=== PATIENT | female | born 1955 | race Caucasian/White ===

== ENCOUNTER → 2017-05-10 | Outpatient (CLI) | payer OTHER ==
--- NOTE | 2017-05-13 13:46 | MM ---
Reason for exam: screening (asymptomatic). Last mammogram was performed 2 years and 9 months ago. History: Patient is postmenopausal and had first child at age 37. Benign cyst aspiration of the right breast, 1992. Physical Findings: A clinical breast exam by your physician is recommended on an annual basis and results should be correlated with mammographic findings. MG 3D Screening Mammo W/Cad Bilateral CC and MLO view(s) were taken. Prior study comparison: July 28, 2014, mammogram, performed at [facility]. November 05, 2011, mammogram, performed at [facility]. The breast tissue is heterogeneously dense. This may lower the sensitivity of mammography. Focal asymmetry. There is a 17mm focal asymmetry in the retroareolar right breast likely corresponding to dilated ducts. Further evaluation warranted. ASSESSMENT: Incomplete: need additional imaging evaluation, BI-RAD 0 RECOMMENDATION: Special view mammogram and ultrasound of the right breast. [facility] will attempt to contact patient to return for supplemental views and ultrasound.
== END | disposition home or self-care (01) ==
LOC: RADMAMWWP 10:19
PROVIDERS: ATTEND Family Medicine
DX: Z12.31 Encounter for screening mammogram for malignant neoplasm of breast (principal)
CPT/HCPCS: 77063; G0202

== ENCOUNTER → 2017-05-20 | Outpatient (CLI) | payer OTHER ==
--- NOTE | 2017-05-20 16:14 | USB ---
EXAMINATION TYPE: US breast workup complete LT DATE OF EXAM: 05/20/2017 COMPARISON: Bilateral screening mammogram dated 05/10/2017 CLINICAL HISTORY: R92.8 Abn mammogram. The patient notes her right brown nipple discharge has been pr esent for many years and is unchanged. Whole left breast ultrasound was performed including the retroareolar region and axillary tail. Corre sponding to the focal asymmetry within the retroareolar left breast there are multiple prominent duct s with no intraductal filling defect noted. No suspicious sonographic abnormality is seen. No cystic or solid masses present. IMPRESSION: BI-RADS 2-benign findings. 1. Left breast retroareolar ductal ectasia corresponds to the mammographic abnormality, a benign find ing. 2. Clinical management is recommended for the prominent right nipple discharge the patient notes has been present for many years.
== END ==
LOC: RADMAMWWP 15:07
PROVIDERS: ATTEND Family Medicine
DX: R92.8 Other abnormal and inconclusive findings on diagnostic imaging of breast (principal)

== ENCOUNTER 2018-03-27 10:54 | Day surgery (SDC) | payer OTHER ==
[2018-03-26 08:59] VITALS: BMI 33.7
[~2018-03-27 10:54] MED LIST: DEXAMETHASONE SOD PHOSPHATE 10 MG/ML 1 ML VIAL IV ONE; LACTATED RINGERS 1,000 ML IV SCH; ONDANSETRON 4 MG/2 ML VIAL IVP ONE
[2018-03-27] MEDS ORDERED: LIDOCAINE 1% 20 ML VIAL (10MG/ML) FOR IV START INTRADERMA ONE (11:40)
[2018-03-27] MEDS ORDERED: FAMOTIDINE 20 MG/2 ML VIAL IV ONE (11:42)
[2018-03-27] MEDS ORDERED: BUPIVACAINE (PF) 0.5% 30 ML VIAL SQ ONE ×3 (12:16→12:40)
[2018-03-27] MEDS ORDERED: LIDOCAINE 1%-EPI 1:100,000 20 ML VIAL SQ ONE ×3 (12:16→12:40)
[2018-03-27] MEDS ORDERED: fentaNYL (PF) 50 MCG/ML 2 ML AMP ONE (12:17)
[2018-03-27] MEDS ORDERED: LIDOCAINE 1% INJ 10MG/ML (20 ML MDV) ONE (12:17)
[2018-03-27] MEDS ORDERED: PROPOFOL 10 MG/ML 20 ML VIAL IV ONE (12:17)
[2018-03-27] MEDS ORDERED: ePHEDrine SULFATE/0.9% NACL/PF 50 MG/5 ML SYRINGE IV ONE (12:17)
[2018-03-27] MEDS ORDERED: SUCCINYLCHOLINE CHLORIDE 100 MG/5 ML SYR IV ONE (12:17)
[2018-03-27] MEDS ORDERED: MIDAZOLAM 2 MG/2 ML VIAL ONE (12:17)
[2018-03-27] MEDS: HYDROmorphone 0.5 MG/0.5 ML SYRINGE IVP PRN ×2 (13:45→14:12)
--- NOTE | 2018-03-27 13:54 | P.OP ---
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 Maxillary antrostomy and repair of this right oroantral fistula was recommended. Operative Findings: Patient had a large amount of infection and food debris in the right maxillary sinus. Patient had a persistent right oral antral fistula. Description of Procedure: This patient was taken to the operative room and placed in the supine position. A general inhalation anesthetic was administered to the patient by mask and subsequently intubated with a cuffed endotracheal tube by the department of anesthesia with a functioning IV line in place. Patient was monitored throughout the entire case by the department of anesthesia. The right lateral nasal wall middle turbinate and uncinate process was injected with lidocaine 1% with epinephrine 1 100,000 in approximately 10 minutes were allowed wait for full vasoconstrictive effects to take place. With use of a Norman a nasal antral window was performed underneath the right inferior turbinate. We opened up the maxillary sinus under the right inferior turbinate and debris and diseased tissue was removed. We then took down the uncinate process with a pediatric backbiter and open up the maxillary sinus on the right side. Diseased tissue was again removed and the patient tolerated this well. All maxillary sinus disease was removed we did do that procedure with a 0 Marr jarret scopes throughout the entire procedure the nasal procedure was done with a Marr jarret scope on a video screen. After the right maxillary sinus was opened and diseased tissue and food debris removed we paid attention to the mouth were in the right upper or antral fistula was identified. We injected that area with lidocaine 1% with epinephrine 1 100,000. An incision was made surrounding the oral antral fistula and the fistula and was imbricated inward. After the fistula was imbricated we raised a buccal flap laterally and we undermined that area to release the attachments. We rotated the buccal flap into the oral antral fistula and close this with 2-0 silk. Excellent results were obtained. The patient tolerated this well. Follow-up will be in the office in 1 week.
[2018-03-27 14:00] VITALS: TEMP 97.6
[2018-03-27 14:27] VITALS: RESP 18
[2018-03-27 14:41] VITALS: BP 138/68; PULSE 68
[2018-03-28] MEDS ORDERED: MELOXICAM 7.5 MG TAB PO ONE (06:00)
[2018-03-28] MEDS ORDERED: OXYMETAZOLINE 0.05% NASL SPRAY 1 SPRAY BOTTLE NASAL ONE (06:00)
[2018-03-28] MEDS ORDERED: ONDANSETRON 4 MG/2 ML VIAL IVP ONE (06:00)
[2018-03-28] MEDS ORDERED: CLINDAMYCIN 600 MG in DEXTROSE 5% IN WATER 50 ML IVPB ONE ×2 (06:00)
[2018-03-28] MEDS ORDERED: DEXAMETHASONE SOD PHOSPHATE 4 MG/ML 1 ML VIAL IV ONE (06:00)
== END 2018-03-27 14:59 | disposition home or self-care (01) ==
LOC: OR 10:54
PROVIDERS: ATTEND Otolaryngology
DX: J32.0 Chronic maxillary sinusitis (principal); E78.00 Pure hypercholesterolemia, unspecified; I10 Essential (primary) hypertension; F32.9 Major depressive disorder, single episode, unspecified; Z79.899 Other long term (current) drug therapy; Z88.0 Allergy status to penicillin; Z87.891 Personal history of nicotine dependence
CPT/HCPCS: 88305; 31267; 30580; J2250; J1100; J2405; J2001; J3010; J0330; J2704; J1170

== ENCOUNTER → 2018-08-07 | Outpatient (CLI) | payer OTHER ==
--- NOTE | 2018-08-08 15:06 | MM ---
Reason for exam: screening (asymptomatic). Last mammogram was performed 1 year and 3 months ago. History: Patient is postmenopausal and had first child at age 37. Benign cyst aspiration of the right breast, 1992. Physical Findings: A clinical breast exam by your physician is recommended on an annual basis and results should be correlated with mammographic findings. MG Screening Mammo w CAD Bilateral CC and MLO view(s) were taken. Prior study comparison: May 10, 2017, bilateral MG 3d screening mammo w/cad. July 28, 2014, mammogram, performed at [facility]. The breast tissue is heterogeneously dense. This may lower the sensitivity of mammography. No significant changes when compared with prior studies. ASSESSMENT: Benign, BI-RAD 2 RECOMMENDATION: Routine screening mammogram of both breasts in 1 year.
== END ==
LOC: RADMAMWWP 09:14
PROVIDERS: ATTEND Family Medicine
DX: Z12.31 Encounter for screening mammogram for malignant neoplasm of breast (principal)
CPT/HCPCS: 77067

== ENCOUNTER → 2019-09-15 | Outpatient (CLI) | payer OTHER ==
--- NOTE | 2019-09-15 09:59 | XR ---
EXAM TYPE: LUMBAR SPINE X RAY SERIES COMPARISON: NONE HISTORY: Pain TECHNIQUE: 3 views are submitted. FINDINGS: Alignment is anatomic. The pedicles are intact. The transverse processes are intact. There is a gr ines 1 anterolisthesis of L4 on 5. There is moderate severe degenerative disc disease and facet arthro neda L4-5 and L5-S1. Mild degenerative disc disease L-1-L2. IMPRESSION: 1. Multilevel degenerative disc disease and facet arthropathy most pronounced at L4-5 and L5-S1. Ther e is a grade 1 anterolisthesis of L4 on L5. Correlate with MRI as foraminal encroachment suspected at both levels.
--- NOTE | 2019-09-15 10:00 | XR ---
EXAMINATION TYPE: XR Hip Bilateral Complete DATE OF EXAM: 09/15/2019 COMPARISON: NONE HISTORY: Pain TECHNIQUE: 2 views submitted of each hip FINDINGS: There is no evidence of erosive change or acute fracture. There is mild concentric narrowing of the hip joint right. Soft tissue ossifications calcifications a re seen. Mild hypertrophic change of the acetabulum. There is severe narrowing of the superior compartment of the left hip joint. No erosive changes. IMPRESSION: 1. Severe osteoarthritis left hip. 2. Mild osteoarthritis right hip.
== END | disposition home or self-care (01) ==
LOC: RADXRMAIN 09:32
PROVIDERS: ATTEND Family Medicine
DX: M51.36 Other intervertebral disc degeneration, lumbar region (principal); M43.16 Spondylolisthesis, lumbar region; M51.37 Other intervertebral disc degeneration, lumbosacral region; M46.96 Unspecified inflammatory spondylopathy, lumbar region; M46.97 Unspecified inflammatory spondylopathy, lumbosacral region; M16.0 Bilateral primary osteoarthritis of hip
CPT/HCPCS: 72100; 73521

== ENCOUNTER → 2019-11-13 | Outpatient (CLI) | payer OTHER ==
--- NOTE | 2019-11-17 10:19 | MM ---
Reason for exam: screening (asymptomatic). Last mammogram was performed 1 year and 3 months ago. History: Patient is postmenopausal and had first child at age 37. Benign cyst aspiration of the right breast, 1992. Physical Findings: A clinical breast exam by your physician is recommended on an annual basis and results should be correlated with mammographic findings. MG Screening Mammo w CAD Bilateral CC and MLO view(s) were taken. Prior study comparison: August 07, 2018, bilateral MG screening mammo w CAD. May 10, 2017, bilateral MG 3d screening mammo w/cad. The breast tissue is heterogeneously dense. This may lower the sensitivity of mammography. Focal asymmetry right outer CC view. No significant changes when compared with prior studies. ASSESSMENT: Benign, BI-RAD 2 RECOMMENDATION: Routine screening mammogram of both breasts in 1 year.
== END | disposition home or self-care (01) ==
LOC: RADMAMWWP 13:09
PROVIDERS: ATTEND Family Medicine
DX: Z12.31 Encounter for screening mammogram for malignant neoplasm of breast (principal)
CPT/HCPCS: 77067

== ENCOUNTER → 2019-12-04 | Outpatient (CLI) | payer OTHER | END | disposition home or self-care (01) | LOC: LABPAT 12:08 | PROVIDERS: ATTEND Orthopaedic Surgery | DX: Z01.812 Encounter for preprocedural laboratory examination (principal); M16.12 Unilateral primary osteoarthritis, left hip | CPT/HCPCS: 87070 ==

== ENCOUNTER 2019-12-14 11:27 | Observation (INO) | payer OTHER ==
[2019-12-10 11:24] VITALS: BMI 32.1
--- NOTE | 2019-12-13 11:30 | HP ---
HISTORY AND PHYSICAL REASON FOR ADMISSION: Surgery is scheduled for 12/14/2019. HISTORY OF PRESENT ILLNESS: Caty Ruvalcaba is a 63-year-old patient seen with symptomatic left hip osteoarthritis. After having options regarding treatment discussed with her, she elected to proceed with left total hip arthroplasty. Consent regarding the procedure was obtained. Medical clearance was provided by Dr. Hawa Yen's office. PAST MEDICAL HISTORY: Hyperlipidemia, hypertension, depression. PAST SURGICAL HISTORY: section, oral surgery. MEDICATIONS: Atorvastatin, Effexor, lisinopril. ALLERGIES: AMOXICILLIN. SOCIAL HISTORY: She denies current tobacco use. PHYSICAL EXAMINATION: Evaluation of the left hip: She has some diffuse tenderness along the hip girdle. Limited range of motion with severe pain. Positive hip impingement sign. Straight leg raise is negative. Her distal neurovascular exam is intact. RADIOGRAPHS: Radiographs of the left hip reveal severe osteoarthritic changes. IMPRESSION: 1. Left hip osteoarthritis. 2. Hypertension. 3. Hyperlipidemia. PLAN: Direct anterior left total hip arthroplasty. Surgery scheduled for 12/14/2019. MMODL / IJN: [id number] /
[~2019-12-14 11:27] MED LIST changes: +ACETAMINOPHEN TAB 500 MG TAB PO ONE; -LACTATED RINGERS 1,000 ML IV SCH; +MELOXICAM 7.5 MG TAB PO ONE; +MIDAZOLAM 2 MG/2 ML VIAL IV PRN; +ROPIVACAINE 246.25 MG, EPINEPHrine 0.5 MG, KETOROLAC 30 MG, cloNIDine HCL/PF 80 MCG, WA... MISCELLANE ONE; +SCOPOLAMINE 1.5MG/72HR PATCH TRANSDERM ONE; +TRANEXAMIC ACID 1,000 MG in SODIUM CHLORIDE 0.9% 100 ML IVPB ONE
[2019-12-14 12:06] LABS: Glucose,Whole Blood 94 mg/dL (75-99)
[2019-12-14] MEDS: LACTATED RINGERS 1,000 ML IV SCH ×3 (12:14→22:05)
[2019-12-14] MEDS ORDERED: LIDOCAINE 1% (10MG/ML) FOR IV START INTRADERMA ONE (12:16)
[2019-12-14] MEDS ORDERED: ePHEDrine SULFATE/0.9% NACL/PF 50 MG/5 ML SYRINGE IV ONE (12:46)
[2019-12-14] MEDS ORDERED: TRANEXAMIC ACID 1,000 MG/10 ML VIAL ONE (12:46)
[2019-12-14] MEDS ORDERED: MIDAZOLAM 2 MG/2 ML VIAL ONE (12:46)
[2019-12-14] MEDS ORDERED: fentaNYL (PF) 50 MCG/ML 2 ML AMP ONE (12:46)
[2019-12-14] MEDS ORDERED: SODIUM CHLORIDE 0.9% 100 ML BAG ONE (12:46)
[2019-12-14] MEDS ORDERED: LIDOCAINE 1% INJ 10MG/ML (20 ML MDV) ONE (12:46)
[2019-12-14] MEDS ORDERED: PROPOFOL 10 MG/ML 20 ML VIAL IV ONE (12:46)
[2019-12-14] MEDS ORDERED: LACTATED RINGERS 1,000 ML IV ONE ×2 (14:12→17:45)
[2019-12-14] MEDS ORDERED: ONDANSETRON 4 MG/2 ML VIAL IVP PRN (14:58)
[2019-12-14] MEDS ORDERED: NALOXONE 0.4 MG/ML 1 ML VIAL IV PRN (14:58)
[2019-12-14] MEDS ORDERED: HYDROmorphone 1 MG/ML 1 ML SYRINGE IVP PRN (14:58)
[2019-12-14] MEDS ORDERED: HYDROcodone/APAP 7.5-325MG 1 EACH TAB PO PRN (14:58)
[2019-12-14] MEDS ORDERED: HYDROmorphone 0.5 MG/0.5 ML SYRINGE IVP PRN (14:58)
--- NOTE | 2019-12-14 14:58 | P.OP ---
Date of Procedure: 12/14/19 Preoperative Diagnosis: Left hip osteoarthritis Postoperative Diagnosis: Left hip osteoarthritis Procedure(s) Performed: Direct anterior left total hip arthroplasty Implants: 1. Depuy Corail KA size 10 standard press-fit femoral stem 2. Depuy pinnacle 52 mm press-fit acetabular shell 3. Depuy pinnacle neutral polyethylene acetabular liner 36 mm ID 52 mm OD 4. Biolox delta ceramic femoral head +5 36 mm Anesthesia: local, spinal Surgeon: Matias Owens Electrical Calibrator #1: Ton Alberto Estimated Blood Loss (ml): 80 Pathology: other (Femoral head) Condition: stable Disposition: PACU Indications for Procedure: 63-year-old patient seen with symptomatic left hip osteoarthritis. After treatment options were discussed, she elected to proceed with total hip arthroplasty. Operative Findings: See description of procedure Description of Procedure: The patient was taken to the operative suite. Patient underwent a spinal anesthetic by the department of anesthesia. Patient was then transferred to the [place] table. Patient was given preoperative IV antibiotics and TXA. Both lower extremities were placed in standard leg spars. The hip was then prepped and draped in the normal sterile orthopedic fashion. A standard anterior incision was made beginning 3 cm lateral and 1 cm distal to the ASIS extending 10 cm. Dissection was then carried down through the subcutaneous soft tissues down to the fascia overlying the tensor fascia archie. An incision was now made through the fascia. Careful dissection was taken down exposing the tensor fascia archie muscle. A Cobra retractor was now placed along the medial femoral neck and a second one along the lateral femoral neck. The venous circumflex vessels were now identified, cauterized and clipped. We identified the anterior hip capsule. An incision was made through the hip capsule along the lateral border. I performed a partial anterior capsulectomy. Retractors were now placed around the femoral neck itself. A femoral neck cut was now made with a sagittal saw. It was completed with an osteotome at the lateral neck area. The femoral head was now removed without difficulty. The extremity was now rotated to 45 of external rotation. It was locked in position. Residual labrum was now debrided out. Serial reaming was performed of the acetabulum while Tonny COE assisted holding an anterior retractor for exposure. Once we reached the appropriate size and a trial was position and fit nicely. The appropriate size was now chosen opened and made available. It was introduced into the acetabulum without difficulty. The C-arm/fluoroscopy was now brought into the operative field. We made sure we had a true AP pelvic view. We now under direct C- arm/fluoroscopy introduced into the acetabular component with appropriate version and inclination. I held the cup in appropriate position well Tonny COE used a mallet to seat the acetabular component. I noted the component now to be well seated and stable. Acetabular cup introduce her was removed. The C-arm was pulled back. An appropriate liner was introduced and clicked into position. It was felt to be stable. At this point retractors were removed. The extremity was now placed into 125 external rotation with no traction. The leg was now dropped to the ground and adducted. Appropriate retractors were now positioned along the proximal femur. We also placed our femoral look into position. Additional capsular releasing was performed to gain access to the proximal femur. We now used a box osteotome. A canal finder was now utilized. Serial broaching was now performed with the assistance of Tonny COE tapping the broaches down with a mallet while held the broach in appropriate rotation and position. This was done until we reached the appropriate size with good overall rotational stability. Appropriate calcar planing was performed. A trial head/neck was placed into position. The hip was now reduced. The C- arm/fluoroscopy was brought back into the operative field. An AP pelvis was obtained to ascertain leg length. The trial components were visualized and noted to be adequately positioned. The C-arm/fluoroscopy was pulled back. Retractors were repositioned and the hip was dislocated. The leg was again taken down to the ground and adducted. Appropriate retractors were repositioned as well as the femoral hook. All trial components were removed. The femoral implant was opened along with the femoral head. The femoral implant was introduced on the appropriate handle into our pre-broached area. I held the component position well Tonny COE used a mallet to seat the femoral component. The femoral component was now noted to be well seated and stable.. The femoral head was introduced with good positioning and fixation noted. Retractors were now removed. The hip was now reduced. There appeared be good positioning of the hip confirmed on intraoperative fluoroscopy. Spot films were obtained to document this. A second gram of TXA was given. The deep and superficial soft tissues were infiltrated with local analgesic. Bipolar cautery had been utilized intermittently through the procedure for hemostasis. The wound was irrigated copiously with pulse lavage mechanical irrigation. The fascia was repaired with Vicryl suture. The subcutaneous soft tissues were repaired in layers with Vicryl suture. The skin was approximated with pernio/Dermabond. Sterile dressings were applied. Patient was then awakened, transferred to a bed and taken to recovery in stable condition. Tonny COE assisted with the complex procedure.
--- NOTE | 2019-12-14 15:22 | XR ---
EXAMINATION TYPE: XR Hip Limited LT, FL guidance operating room DATE OF EXAM: 12/14/2019 CLINICAL HISTORY: Fluoroscopic documentation during left hip arthroplasty TECHNIQUE: Fluoroscopy. COMPARISON: None. FINDINGS: Fluoroscopic guidance was provided during procedure performed by Dr. Owens. A total o f 21 seconds of fluoroscopic time was utilized during the procedure and 2 spot images was acquired du ring left hip arthroplasty. IMPRESSION: As Above.
[2019-12-14] MEDS: HYDROmorphone 0.5 MG/0.5 ML SYRINGE IVP PRN ×4 (17:20→22:00)
[2019-12-14 17:32] VITALS: RESP 16
[2019-12-14] MEDS ORDERED: SENNOSIDES-DOCUSATE SODIUM 1 EACH TAB PO SCH (21:00)
[2019-12-15] MEDS: HYDROcodone/APAP 7.5-325MG 1 EACH TAB PO PRN ×3 (00:09→13:50)
[2019-12-15] MEDS: HYDROmorphone 0.5 MG/0.5 ML SYRINGE IVP PRN (03:51)
[2019-12-15] MEDS: LACTATED RINGERS 1,000 ML IV SCH (05:29)
[2019-12-15 07:53] VITALS: BP 128/65; PULSE 61; TEMP 98.3
[2019-12-15 08:38] LABS: Basophils % (A) 0 %; Eosinophils # (A) 0.1 k/uL (0-0.7); Eosinophils % (A) 1 %; HCT 37.6 % (34.0-46.0); HGB 12.3 gm/dL (11.4-16.0); Lymphocytes # (A) 3.1 k/uL (1.0-4.8); Lymphocytes % (A) 26 %; MCHC 32.6 g/dL (31.0-37.0); MCV 95.1 fL (80.0-100.0); Mean Platelet Volume 8.2; Monocytes # (A) 0.7 k/uL (0-1.0); Monocytes % (A) 6 %; Neutrophils # (A) 7.7 k/uL (1.3-7.7); Neutrophils % (A) 65 %; Platelet Count 215 k/uL (150-450); RBC 3.95 m/uL (3.80-5.40); RDW 13.5 % (11.5-15.5); WBC 11.8 k/uL (3.8-10.6)
[2019-12-15] MEDS ORDERED: ENOXAPARIN 40 MG/0.4 ML SYRINGE SQ SCH (09:00)
[2019-12-15] MEDS ORDERED: FAMOTIDINE 20 MG TAB PO SCH (09:00)
[2019-12-15] MEDS ORDERED: MELOXICAM 7.5 MG TAB PO SCH (09:00)
--- NOTE | 2019-12-15 11:19 | P.PN ---
Subjective Progress Note Date: 12/15/19 Principal diagnosis: status post direct anterior left total hip arthroplasty Patient evaluated today at bedside today, she is resting comfortably. She's done very well with physical therapy. Her pain is well-controlled. She denies chest pain, shortness of breath, fever or chills. Objective - Vital Signs Vital signs: Vital Signs Temp 98.3 F 12/15/19 07:38 Pulse 61 12/15/19 07:38 Resp 16 12/15/19 07:38 BP 128/65 12/15/19 07:38 Pulse Ox 94 L 12/15/19 07:38 Intake & Output 12/14/19 12/15/19 12/15/19 18:59 06:59 18:59 Intake Total 2000 200 Output Total 80 1000 Balance 1920 -1000 200 Weight 83.8 kg 83.8 kg Intake: IV 2000 Oral 200 Output: Urine 1000 Estimated Blood Loss 80 Other: Voiding Method Toilet # Voids 1 1 - Exam Left lower extremity: Incision is clean, dry, and intact. The opti foam dressing is in good condition. There is minimal soft tissue swelling and ecchymosis surrounding the medial and lateral aspects of the incision. Calf is soft, no tenderness with palpation. Plantar flexion, dorsiflexion, EHL, FHL are intact. Sensory exam to light touch throughout the extremity is intact, dorsal pedis pulses 2+. - Labs CBC & Chem 7: 12/15/19 06:53 Labs: Abnormal Lab Results - Last 24 Hours (Table) 12/15/19 Range/Units 06:53 WBC 11.8 H (3.8-10.6) k/uL Assessment and Plan Plan: Assessment: Postoperative day 1 status post right anterior left total hip arthroplasty Plan: Pain control, discharged home on oral medication GI and DVT prophylaxis, aspirin 81 mg twice a day Wound care instructions were discussed Home physical therapy and nursing Medical recommendations [facility] with [facility] 2 weeks, stable for discharge home today Time with Patient: Less than 30
--- NOTE | 2019-12-15 11:21 | P.DS ---
Providers Date of admission: 12/14/2019 Expected date of discharge: 12/15/19 Attending physician: Matias Owens Consults: 12/14/19 14:58 Consult Physician Routine Consulting Provider: Brian Joseph Reason/Comments: Medical management Do you want consulting provider notified?: Yes Primary care physician: Hawa Yen Hospital Course: Date of admission: 12/14/2019 Date of discharge: 12/15/2019 Admission diagnosis: Status post direct anterior left total hip arthroplasty Discharge diagnosis: Same Attending physician: Dr. Owens Surgical procedures: Direct anterior left total hip arthroplasty Brief history: Patient is a 63-year-old female with a history of aggressive primary left hip osteoarthritis. At this point patient has failed conservative treatment measures and has opted to proceed with a elective direct anterior left total hip arthroplasty. Hospital course: Details of patient's surgery can be found in operative report. Patient tolerated the procedure well and was subsequently transported to orthopedic floor. Patient's orthopeidc and medical care was provided daily. Patient had daily laboratory tests performed for evaluation of overall blood counts. Patient had daily physical therapy to include strengthening range of motion as well as education with walker ambulation. Patient was treated with Lovenox for their postoperative DVT prophylaxis during their inpatient stay. Patient was noted to have a relatively uneventful postoperative course. Patient reported satisfactory pain control with oral pain medications by postoperative day 0. Patient showed satisfactory progress with physical therapy. Patient moved steadily through the program and had no difficulty meeting the goals by postoperative day 1. Given patient's otherwise satisfactory course and having met physical therapy goals, plan is to discharge patient home on postoperative day 1. Discharge condition/disposition: Patient will be discharged home in stable c ondition. Discharge medications: Instructions are given on resumption of patient's normal daily medications per primary care recommendation, in addition patient will be prescribed [place] 7.5 mg/325 mg, aspirin 81 mg. Discharge instructions: 1. Wound care and infection precautions, keep incision dry and covered while showering, no lotions, creams, moisturizers. No soaking, tubs, pools, hottubs. D o not scrub over the incision. 2. Weight-bear as tolerated with walker / cane until follow-up. 3. Ice and elevate when necessary. Do not exceed 20 minutes per hour with ice pack. 4. Utilize compression sleeve until seen at first follow up appointment. 5. Visiting nursing care. 6. Home physical therapy. 7. Pain meds and anticoagulants per prescription. 8. Pain medication has potential to cause constipation. Increase oral fluid and fiber intake. Contact primary care provider if you have not had a bowel movement within 48 hours after discharge 9. No anti-inflammatory medication until discussed at first post operative visit, this including Motrin, Aleve, Mobic, Diclofenac. 10. Follow up in office at 2 weeks postop with Tonny Alberto PA-C 11. Follow up with your primary care doctor 7-10 days after discharge. 12. Contact [facility] with any questions, . Procedures: direct anterior left total hip arthroplasty Patient Condition at Discharge: Good Plan - Discharge Summary Discharge Rx Participant: Yes New Discharge Prescriptions: New Aspirin [Adult Low Dose Aspirin EC] 81 mg PO BID #60 tablet. HYDROcodone/APAP 7.5-325MG [[place] 7.5] 1 - 2 each PO Q6HR PRN #56 tab PRN Reason: Pain No Action Venlafaxine HCl ER [Effexor Xr] 75 mg PO QAM Methylphenidate HCl [Concerta] 36 mg PO DAILY Lisinopril [Zestril] 20 mg PO QAM Atorvastatin [Lipitor] 60 mg PO DAILY Multivit with Calcium,Iron,Min [Women's Multivitamin] 1 each PO DAILY B,C/Folic/Zinc/Copper Ox/Vit E [Stress B-Complex Tablet] 1 each PO DAILY Baclofen [Lioresal] 10 mg PO BID PRN PRN Reason: Pain Acetaminophen [Tylenol] 500 - 1,000 mg PO Q4-6H PRN PRN Reason: Pain traMADol HCL [Ultram] 50 mg PO BID PRN PRN Reason: Pain Calcium Citrate 250 mg PO DAILY Cyclobenzaprine HCl 10 mg PO HS PRN PRN Reason: Pain Biotin 5,000 mcg PO DAILY Discharge Medication List Atorvastatin [Lipitor] 60 mg PO DAILY 03/26/18 [History] B,C/Folic/Zinc/Copper Ox/Vit E [Stress B-Complex Tablet] 1 each PO DAILY 03/26/18 [History] Lisinopril [Zestril] 20 mg PO QAM 03/26/18 [History] Methylphenidate HCl [Concerta] 36 mg PO DAILY 03/26/18 [History] Multivit with Calcium,Iron,Min [Women's Multivitamin] 1 each PO DAILY 03/26/18 [History] Venlafaxine HCl ER [Effexor Xr] 75 mg PO QAM 03/26/18 [History] Acetaminophen [Tylenol] 500 - 1,000 mg PO Q4-6H PRN 12/10/19 [History] Baclofen [Lioresal] 10 mg PO BID PRN 12/10/19 [History] Biotin 5,000 mcg PO DAILY 12/10/19 [History] Calcium Citrate 250 mg PO DAILY 12/10/19 [History] Cyclobenzaprine HCl 10 mg PO HS PRN 12/10/19 [History] traMADol HCL [Ultram] 50 mg PO BID PRN 12/10/19 [History] Aspirin [Adult Low Dose Aspirin EC] 81 mg PO BID #60 tablet. 12/15/19 [Rx] HYDROcodone/APAP 7.5-325MG [[place] 7.5] 1 - 2 each PO Q6HR PRN #56 tab 12/15/19 [Rx] Follow up Appointment(s)/Referral(s): Ton Alberto PAC [PHYSICIAN INSULATION NOZZLEMAN] - 12/30/19 3:10 pm Hawa Yen DO [Primary Care Provider] - 1 Week Activity/Diet/Wound Care/Special Instructions: Orthopedic Discharge Instructions: 1. Wound care and infection precautions, keep incision dry and covered while showering, no lotions, creams, moisturizers. No soaking, pools, hot tubs. Do not scrub over incision. 2. Weight-bear as tolerated with walker / cane until follow-up. 3. Ice and elevate when necessary. Do not exceed 20 minutes per hour with ice pack. 4. Utilize compression sleeve until seen at first follow up appointment. 5. Pain meds and anticoagulants per prescription. 6. Pain medication has potential to cause constipation. Increase oral fluid and fiber intake. Contact primary care provider if you have not had a bowel movement within 48 hours after discharge. 7. No anti-inflammatory medication until discussed at first post operative visit, this including Motrin, Aleve, Mobic, Diclofenac. 8. Follow up in office at 2 weeks postop with Tonny Alberto PA-C 9. Follow up with your primary care doctor 7-10 days after discharge. 10. Contact [facility] with any questions, . Discharge Disposition: HOME WITH HOME HEALTH SERVICES
== END 2019-12-15 14:14 | disposition home health service (06) ==
LOC: OR 11:27 → 4SSUR 19:09 → OBSVTOIN 12-15 04:21 → OR 12-15 04:21 → INTOOBSV 12-15 04:21 → 4SSUR 12-15 04:21 → UNDODISOB 12-15 14:11 → OBSVTOIN 12-18 23:21 → INTOOBSV 12-18 23:21 → UNDODISIN 12-18 23:22
PROVIDERS: ADMIT Orthopaedic Surgery; ATTEND Orthopaedic Surgery
PROC: 0SRB04A Replacement of Left Hip Joint with Ceramic on Polyethylene Synthetic Substitute, Uncemented, Open Approach (ICD-10-PCS; principal; 2019-12-14 12:35)
DX: M16.12 Unilateral primary osteoarthritis, left hip (principal); E78.5 Hyperlipidemia, unspecified; I10 Essential (primary) hypertension; F32.9 Major depressive disorder, single episode, unspecified; Z79.899 Other long term (current) drug therapy; Z87.891 Personal history of nicotine dependence; Z98.891 History of uterine scar from previous surgery; Z98.890 Other specified postprocedural states; Z88.0 Allergy status to penicillin
CPT/HCPCS: 97161; 86900; 86901; 85025; 86850; 88300; 73501; 36415; 27130; G0378; C1776; J2250; J0171; J1100; J0690 ×2; J2405; J2001; J1650; J3010; J1885; J2795; J2704; J0735; J1170 ×2

== ENCOUNTER → 2020-10-13 | Outpatient (CLI) | payer OTHER ==
[2020-10-13 11:17] LABS: Basophils # (A) 0.1 k/uL (0-0.2); Basophils % (A) 1 %; Eosinophils # (A) 0.1 k/uL (0-0.7); Eosinophils % (A) 1 %; HCT 46.3 % (34.0-46.0); Lymphocytes # (A) 2.8 k/uL (1.0-4.8); Lymphocytes % (A) 36 %; MCH 31.5 pg (25.0-35.0); MCHC 32.4 g/dL (31.0-37.0); MCV 97.3 fL (80.0-100.0); Mean Platelet Volume 7.3; Monocytes # (A) 0.5 k/uL (0-1.0); Monocytes % (A) 6 %; Neutrophils % (A) 52 %; Platelet Count 271 k/uL (150-450); RBC 4.75 m/uL (3.80-5.40); RDW 13.7 % (11.5-15.5); WBC 7.7 k/uL (3.8-10.6)
[2020-10-13 11:30] LABS: Potassium 4.4 mmol/L (3.5-5.1)
[2020-10-13 12:05] LABS: INR 0.9 (<1.2); Prothrombin Time 10.2 sec (9.0-12.0)
== END | disposition home or self-care (01) ==
LOC: LABPAT 10:05
PROVIDERS: ATTEND Orthopaedic Surgery
DX: Z01.812 Encounter for preprocedural laboratory examination (principal); M16.11 Unilateral primary osteoarthritis, right hip
CPT/HCPCS: 80051; 85025; 85610; 87070; 93005

== ENCOUNTER 2020-10-24 06:27 | Day surgery (SDC) | payer OTHER ==
[2020-10-14 16:04] VITALS: BMI 35.9
--- NOTE | 2020-10-23 12:18 | HP ---
HISTORY AND PHYSICAL REASON FOR ADMISSION: Surgery 10/24/2020 HISTORY OF PRESENT ILLNESS: Caty Troncoso is a 64-year-old patient seen with symptomatic right hip osteoarthritis. After options for treatment were discussed with her, she elected to proceed with right direct anterior right total hip arthroplasty. Consent was obtained. Previous medical clearance was provided by Dr. Hawa Yen. PAST MEDICAL HISTORY: Hyperlipidemia, hypertension. PAST SURGICAL HISTORY: Left total hip arthroplasty, section, oral surgery. DAILY MEDICATIONS: Atorvastatin, Effexor, lisinopril. ALLERGIES: AMOXICILLIN. SOCIAL HISTORY: She denies current tobacco use. PHYSICAL EXAMINATION: Evaluation of the right hip: There is very limited range of motion with severe pain, diffuse tenderness about the hip girdle. Straight leg raise negative. Positive hip impingement sign. Distal neurovascular exam is intact. RADIOGRAPHS: Radiographs of the right hip reveal severe osteoarthritic changes. IMPRESSION: 1. Right hip osteoarthritis. 2. Hypertension. 3. Hyperlipidemia. PLAN: Direct anterior right total hip arthroplasty. Surgery 10/24/2020. MMODL / IJN: [id number] /
[~2020-10-24 06:27] MED LIST changes: -ACETAMINOPHEN TAB 500 MG TAB PO ONE; +ACETAMINOPHEN TAB 500 MG TAB PO PRN; -DEXAMETHASONE SOD PHOSPHATE 10 MG/ML 1 ML VIAL IV ONE; +LACTATED RINGERS 1,000 ML IV SCH; +LIDOCAINE 1% (10MG/ML) FOR IV START INTRADERMA PRN; -MELOXICAM 7.5 MG TAB PO ONE; +MELOXICAM 7.5 MG TAB PO PRN; -MIDAZOLAM 2 MG/2 ML VIAL IV PRN; -ROPIVACAINE 246.25 MG, EPINEPHrine 0.5 MG, KETOROLAC 30 MG, cloNIDine HCL/PF 80 MCG, WA... MISCELLANE ONE; +ROPIVACAINE/EPI/CLONIDINE/KET 50 ML SYRINGE MISCELLANE PRN; -SCOPOLAMINE 1.5MG/72HR PATCH TRANSDERM ONE; -TRANEXAMIC ACID 1,000 MG in SODIUM CHLORIDE 0.9% 100 ML IVPB ONE; +TRANEXAMIC ACID 1,000 MG in SODIUM CHLORIDE 0.9% 100 ML IVPB PRN
[2020-10-24] MEDS ORDERED: HYDROmorphone 0.5 MG/0.5 ML SYRINGE IVP PRN ×2 (07:00→09:45)
[2020-10-24] MEDS ORDERED: DEXAMETHASONE SOD PHOSPHATE 4 MG/ML 1 ML VIAL IVP ONE (07:10)
[2020-10-24] MEDS ORDERED: HYDROmorphone (PF) 1 MG/ML ONE (07:23)
[2020-10-24] MEDS ORDERED: SUCCINYLCHOLINE CHLORIDE 100 MG/5 ML SYR IV ONE (07:23)
[2020-10-24] MEDS ORDERED: MIDAZOLAM 2 MG/2 ML VIAL ONE (07:23)
[2020-10-24] MEDS ORDERED: ROCURONIUM 10 MG/ML (10 ML VIAL) IV ONE (07:23)
[2020-10-24] MEDS ORDERED: GLYCOPYRROLATE 0.2 MG/ML 2 ML VIAL ONE (07:23)
[2020-10-24] MEDS ORDERED: NEOSTIGMINE 1 MG/ML 10 ML VIAL ONE (07:23)
[2020-10-24] MEDS ORDERED: PROPOFOL 10 MG/ML 20 ML VIAL IV ONE (07:23)
[2020-10-24] MEDS ORDERED: SODIUM CHLORIDE 0.9% 100 ML BAG ONE (07:23)
[2020-10-24] MEDS ORDERED: LIDOCAINE 1% INJ 10MG/ML (20 ML MDV) ONE (07:23)
[2020-10-24] MEDS ORDERED: ePHEDrine SULFATE/0.9% NACL/PF 50 MG/5 ML SYRINGE IV ONE (07:23)
[2020-10-24] MEDS ORDERED: fentaNYL (PF) 50 MCG/ML 2 ML AMP ONE (07:23)
[2020-10-24] MEDS ORDERED: TRANEXAMIC ACID 1,000 MG/10 ML VIAL ONE (07:23)
[2020-10-24] MEDS ORDERED: ceFAZolin 1,000 MG in SODIUM CHLORIDE 0.9% 1,000 ML IRRIGATION ONE (08:06)
[2020-10-24] MEDS ORDERED: LACTATED RINGERS 1,000 ML IV ONE ×2 (09:08→09:45)
[2020-10-24] MEDS ORDERED: HYDROmorphone 1 MG/ML 1 ML SYRINGE IVP PRN (09:45)
[2020-10-24] MEDS ORDERED: HYDROmorphone 0.2 MG/1 ML SYRINGE IVP PRN (09:45)
[2020-10-24] MEDS ORDERED: HYDROcodone/APAP 7.5-325MG 1 EACH TAB PO PRN (09:45)
[2020-10-24] MEDS ORDERED: NALOXONE 0.4 MG/ML 1 ML VIAL IV PRN (09:45)
[2020-10-24] MEDS ORDERED: HYDROcodone/APAP 5-325MG 1 EACH TAB PO PRN (09:45)
[2020-10-24] MEDS ORDERED: ONDANSETRON 4 MG/2 ML VIAL IVP PRN (09:45)
--- NOTE | 2020-10-24 09:45 | P.OP ---
Date of Procedure: 10/24/20 Preoperative Diagnosis: Right hip osteoarthritis Postoperative Diagnosis: Right hip osteoarthritis Procedure(s) Performed: Direct anterior right total hip arthroplasty Implants: 1. Depuy [place] KA standard collar size 10 press-fit femoral stem 2. Depuy [place] 54 mm press-fit acetabular shell 3. Depuy pinnacle polyethylene acetabular liner neutral 36 mm ID 54 mm OD 4. Depuy metal femoral head 36 mm -2 Anesthesia: GETA, local Surgeon: Matias Owens Video Effects Editor #1: Ton Alberto Estimated Blood Loss (ml): 150 Pathology: other (Femoral head) Condition: stable Disposition: PACU Indications for Procedure: 64-year-old patient seen with symptomatic right hip osteoarthritis. After treatment options were discussed with her, she elected to proceed with total hip arthroplasty. Operative Findings: See description of procedure Description of Procedure: The patient was taken to the operative suite. Patient underwent a general anesthetic by the department of anesthesia. Patient was then transferred to the [place] table. Patient was given preoperative IV antibiotics and TXA. Both lower extremities were placed in standard leg spars. The hip was then prepped and draped in the normal sterile orthopedic fashion. A standard anterior incision was made beginning 3 cm lateral and 1 cm distal to the ASIS extending 10 cm. Dissection was then carried down through the subcutaneous soft tissues down to the fascia overlying the tensor fascia archie. An incision was now made through the fascia. Careful dissection was taken down exposing the tensor fascia archie muscle. A Cobra retractor was now placed along the medial femoral neck and a second one along the lateral femoral neck. The venous circumflex vessels were now identified, cauterized and clipped. We identified the anterior hip capsule. An incision was made through the hip capsule along the lateral border. I performed a partial anterior capsulectomy. Retractors were now placed around the femoral neck itself. A femoral neck cut was now made with a sagittal saw. It was completed with an osteotome at the lateral neck area. The femoral head was now removed without difficulty. The extremity was now rotated to 45 of external rotation. It was locked in position. Residual labrum was now debrided out. Serial reaming was performed of the acetabulum while Tonny COE assisted holding an anterior retractor for exposure. Once we reached the appropriate size and a trial was position and fit nicely. The appropriate size was now chosen opened and made available. It was introduced into the acetabulum without difficulty. The C-arm/fluoroscopy was now brought into the operative field. We made sure we had a true AP pelvic view. We now under direct C- arm/fluoroscopy introduced into the acetabular component with appropriate version and inclination. I held the cup in appropriate position well Tonny COE used a mallet to seat the acetabular component. I noted the component now to be well seated and stable. Acetabular cup introduce her was removed. The C-arm was pulled back. An appropriate liner was introduced and clicked into position. It was felt to be stable. At this point retractors were removed. The extremity was now placed into 120 external rotation with no traction. The leg was now dropped to the ground and adducted. Appropriate retractors were now positioned along the proximal femur. We also placed our femoral look into position. Additional capsular releasing was performed to gain access to the proximal femur. We now used a box osteotome. A canal finder was now utilized. Serial broaching was now performed with the assistance of Tonny COE tapping the broaches down with a mallet while held the broach in appropriate rotation and position. This was done until we reached the appropriate size with good overall rotational stability. Appropriate calcar planing was performed. A trial head/neck was placed into position. The hip was now reduced. The C- arm/fluoroscopy was brought back into the operative field. I obtained AP pelvis view demonstrating adequate leg length positioning as well as adequate positioning of the trial components. The C-arm/fluoroscopy was pulled back. Retractors were repositioned and the hip was dislocated. The leg was again taken down to the ground and adducted. Appropriate retractors were repositioned as well as the femoral hook. All trial components were removed. The femoral implant was opened along with the femoral head. The femoral implant was introduced on the appropriate handle into our pre-broached area. I held the component position well Tonny COE used a mallet to seat the femoral component. The femoral component was now noted to be well seated and stable.. The femoral head was introduced with good positioning and fixation noted. Retractors were now removed. The hip was now reduced. There appeared be good positioning of the hip confirmed on intraoperative fluoroscopy. Spot films were obtained to document this. A second gram of TXA was given. The deep and superficial soft tissues were infiltrated with local analgesic. Bipolar cautery had been utilized intermittently through the procedure for hemostasis. The wound was irrigated copiously with pulse lavage mechanical irrigation. The fascia was repaired with Vicryl suture. The subcutaneous soft tissues were re paired in layers with Vicryl suture. The skin was approximated with pernio/Dermabond. Sterile dressings were applied. Patient was then awakened, transferred to a bed and taken to recovery in stable condition. Tonny COE assisted with the complex procedure.
--- NOTE | 2020-10-24 10:04 | FL ---
EXAMINATION TYPE: FL guidance operating room, XR Hip Limited RT DATE OF EXAM: 10/24/2020 CLINICAL HISTORY: Right hip pain and osteoarthritis. TECHNIQUE: Fluoroscopy. Intraoperative limited views right hip. COMPARISON: Bilateral hip x-ray September 15, 2019.. FINDINGS: Fluoroscopic guidance was provided during right hip replacement procedure performed by Dr. Owens. A total of 31 seconds of fluoroscopic time was utilized during the procedure and 4 spot images was acquired. 4 intraoperative images obtained show metallic hardware from total right hip arthroplasty satisfactor y in position on frontal projection. IMPRESSION: As Above.
[2020-10-24 10:05] VITALS: RESP 16; TEMP 97.7
[2020-10-24] MEDS ORDERED: KETOROLAC 15 MG/ML 1 ML VIAL ONE (11:50)
[2020-10-24] MEDS ORDERED: KETOROLAC 15 MG/ML 1 ML VIAL IVP ONE (11:51)
[2020-10-24 14:20] VITALS: BP 126/61; PULSE 67
== END 2020-10-24 14:41 | disposition home health service (06) ==
LOC: OR 06:27
PROVIDERS: ATTEND Orthopaedic Surgery
DX: M16.11 Unilateral primary osteoarthritis, right hip (principal); E78.5 Hyperlipidemia, unspecified; I10 Essential (primary) hypertension; M48.00 Spinal stenosis, site unspecified; M43.16 Spondylolisthesis, lumbar region; M47.819 Spondylosis without myelopathy or radiculopathy, site unspecified; F90.9 Attention-deficit hyperactivity disorder, unspecified type; F32.9 Major depressive disorder, single episode, unspecified; Z88.0 Allergy status to penicillin; Z96.642 Presence of left artificial hip joint; Z87.898 Personal history of other specified conditions; Z78.0 Asymptomatic menopausal state; Z87.42 Personal history of other diseases of the female genital tract; Z79.899 Other long term (current) drug therapy; Z79.891 Long term (current) use of opiate analgesic; Z87.891 Personal history of nicotine dependence; Z98.890 Other specified postprocedural states; Z88.1 Allergy status to other antibiotic agents
CPT/HCPCS: 97110; 97161; 86900; 86901; 86850; 88300; 73501; 27130; C1776; J2250; J1100; J2710; J0690 ×2; J2405; J2001; J3010; J1170 ×2; J1885; J0330; J2704

== ENCOUNTER → 2020-12-12 | Outpatient (CLI) | payer OTHER ==
--- NOTE | 2020-12-12 11:29 | MM ---
Reason for exam: additional evaluation requested from prior study. Last mammogram was performed 1 year and 1 month ago. History: Patient is postmenopausal and had first child at age 37. Benign cyst aspiration of the right breast, 1992. Taking progesterone for 1 year beginning at age 63. Physical Findings: Nurse did not find any significant physical abnormalities on exam. MG 3D Diag Mammo W/Cad KARUNA Bilateral CC and MLO view(s) were taken. Prior study comparison: November 13, 2019, bilateral MG screening mammo w CAD. August 07, 2018, bilateral MG screening mammo w CAD. The breast tissue is heterogeneously dense. This may lower the sensitivity of mammography. No persisting abnormality on 3D images. These results were verbally communicated with the patient and result sheet given to the patient on 12/12/20. ASSESSMENT: Incomplete: need additional imaging evaluation, BI-RAD 0 RECOMMENDATION: Ultrasound of the right breast. (area of concern, tenderness)
--- NOTE | 2020-12-12 11:31 | USB ---
Reason for exam: additional evaluation requested from abnormal screening. History: Patient is postmenopausal and had first child at age 37. Benign cyst aspiration of the right breast, 1992. Taking progesterone for 1 year beginning at age 63. US Breast Limited RT Right limited breast ultrasound including focal area of concern, retroareolar and axilla demonstrates no cystic or solid lesion seen. Scanned 9-12 o'clock. These results were verbally communicated with the patient and result sheet given to the patient on 12/12/20. ASSESSMENT: Benign, BI-RAD 2 RECOMMENDATION: Follow-up diagnostic mammogram of both breasts in 1 year. Manage on a clinical basis with regard to right breast tenderness and benign brown nipple discharge.
== END | disposition home or self-care (01) ==
LOC: RADMAMWWP 09:45
PROVIDERS: ATTEND Family Medicine
DX: N64.4 Mastodynia (principal); R92.8 Other abnormal and inconclusive findings on diagnostic imaging of breast
CPT/HCPCS: 77062; 77066

== ENCOUNTER 2021-03-27 10:32 | Emergency (ER) | payer OTHER ==
[2021-03-27 10:54] VITALS: BP 176/83; PULSE 61; RESP 18; TEMP 98.2
[2021-03-27] MEDS ORDERED: ORPHENADRINE 30 MG/ML 2 ML VIAL IM STA (11:25)
[2021-03-27] MEDS ORDERED: MORPHINE SULFATE 4 MG/ML SYRINGE IM STA ×2 (11:25→12:46)
--- NOTE | 2021-03-27 11:29 | ED ---
Back Pain HPI - General Chief Complaint: Back Pain/Injury Stated Complaint: back pain Source: patient, family (spouse), RN notes reviewed, old records reviewed Limitations: no limitations - History of Present Illness Initial Comments: 65-year-old female presents to the emergency room a and O 4, complaining of low back pain after gardening on Saturday. Patient states that she seemed primary care doctor Dr. Powell and was given steroid injection and a Medrol Dosepak to start on Saturday. Patient states she's been taking Tylenol and has not had any relief but is getting worse. Patient states that the pain feels like it deep and goes down into her right leg to her inner ankle. Patient does have history of low back pain. Patient is leaning over the cart trying to relief the pain. States it is difficult to stand or walk which worsens the pain. Patient is on hands and knees flexion of the spine relieve some of the pain. Patient has an ice pack applied to her lower back. MD Complaint: back pain -: days(s) (5) Similar Symptoms Previously: Yes Place: home Radiation: buttocks, right leg Severity: severe Severity scale (1-10): 9 Quality: burning Consistency: constant Improves With: none Worsens With: movement, walking Context: bending (after gardening on Saturday) Associated Symptoms: difficulty walking Treatments Prior to Arrival: cold therapy, acetaminophen, other (Medrol Dosepak and Tylenol) - Related Data Home Medications Medication Instructions Recorded Confirmed Atorvastatin [Lipitor] 60 mg PO DAILY 03/26/18 10/14/20 B,C/Folic/Zinc/Copper Ox/Vit E 1 each PO DAILY 03/26/18 10/14/20 [Stress B-Complex Tablet] Multivit with Calcium,Iron,Min 1 each PO DAILY 03/26/18 10/14/20 [Women's Multivitamin] Venlafaxine HCl ER [Effexor Xr] 75 mg PO QAM 03/26/18 10/14/20 lisinopriL [Zestril] 20 mg PO QAM 03/26/18 10/14/20 Acetaminophen [Tylenol] 500 - 1,000 mg PO Q4-6H PRN 12/10/19 10/14/20 Baclofen [Lioresal] 10 mg PO BID PRN 12/10/19 10/14/20 Biotin 5,000 mcg PO DAILY 12/10/19 10/14/20 Calcium Citrate 600 mg PO DAILY 12/10/19 10/14/20 traMADol HCL [Ultram] 50 mg PO BID PRN 12/10/19 10/14/20 Cannabidiol (Cbd) [Epidiolex] 1 dose TOPICAL DAILY PRN 10/14/20 10/14/20 Previous Rx's Medication Instructions Recorded Aspirin [Adult Low Dose Aspirin EC] 81 mg PO BID #60 tablet.dr 10/24/20 HYDROcodone/APAP 7.5-325MG [Elim 1 - 2 each PO Q6HR PRN #42 tab 10/24/20 7.5] Cyclobenzaprine [Flexeril] 5 mg PO TID PRN 2 Days #6 tablet 03/27/21 Allergies Allergy/AdvReac Type Severity Reaction Status Date / Time amoxicillin Allergy Rash/Hives Verified 03/27/21 10:54 Review of Systems ROS Statement: Those systems with pertinent positive or pertinent negative responses have been documented in the HPI. ROS Other: All systems not noted in ROS Statement are negative. 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 w/IV sedation per pt,dental implants,lynnette cataracts, oral fistula repair 2018 Past Anesthesia/Blood Transfusion Reactions: No Reported Reaction Additional Past Anesthesia/Blood Transfusion Reaction / Comment(s): no hx blood transfusion Past Psychological History: ADD/ADHD, Depression Smoking Status: Never smoker Past Alcohol Use History: Rare Past Drug Use History: None Reported - Past Family History Brother(s) Family Medical History: Cancer Additional Family Medical History / Comment(s): bladder cancer Father Family Medical History: Myocardial Infarction ([place]) Mother Family Medical History: CVA/TIA, Dementia Additional Family Medical History / Comment(s): passed of a hemmorhagic stroke. maternal grandma, 2 mat. aunts hemorrhagic stroke General Exam Limitations: no limitations General appearance: alert, in distress (Back pain) Head exam: Present: atraumatic, normocephalic, normal inspection Eye exam: Present: normal appearance, PERRL, EOMI. Absent: scleral icterus, conjunctival injection, periorbital swelling ENT exam: Present: mucous membranes moist Neck exam: Present: normal inspection, full ROM. Absent: tenderness Respiratory exam: Present: normal lung sounds bilaterally. Absent: respiratory distress, wheezes, rales, rhonchi, stridor, chest wall tenderness, accessory muscle use, decreased breath sounds Cardiovascular Exam: Present: regular rate, normal rhythm, normal heart sounds. Absent: systolic murmur, diastolic murmur, rubs, gallop, clicks GI/Abdominal exam: Present: soft, normal bowel sounds. Absent: distended, tenderness, guarding, rebound, rigid Extremities exam: Present: normal inspection, full ROM, normal capillary refill. Absent: tenderness, pedal edema, joint swelling, calf tenderness Back exam: Present: normal inspection, tenderness (Her sacral), vertebral tenderness. Absent: CVA tenderness (R), CVA tenderness (L), rash noted Neurological exam: Present: alert, oriented X3, CN II-XII intact Psychiatric exam: Present: normal affect, normal mood Skin exam: Present: warm, dry, intact, normal color. Absent: rash, cyanosis, diaphoretic, erythema, petechiae, pallor, mottled Course Vital Signs 03/27/21 10:52 Temperature 98.2 F Pulse Rate 61 Respiratory 18 Rate Blood Pressure 176/83 O2 Sat by Pulse 997 H Oximetry Medical Decision Making - Medical Decision Making states has received some relief from the Norflex and the morphine. She st ates she still has 3 days of steroids to take at home and has an appointment with Dr. Henson tomorrow morning. Patient agreeable to being discharged home and following up with her primary care doctor and will be given a Tylenol 3 take home pack, with 3 doses of Flexeril as requested. Patient denies any saddle anesthesia, no bowel or bladder incontinence, she has good range of motion with bilateral lower extremities. Patient receives increased him for with flexion of the spine and is worse with walking. Patient denies any falls. she is afebrile. Case discussed with Disposition Clinical Impression: Sciatica, Low back pain Disposition: HOME SELF-CARE Condition: Fair Instructions (If sedation given, give patient instructions): Acute Low Back Pain (ED) Additional Instructions: Take medication as prescribed, return to the emergency room if any numbness or tingling, worsening symptoms, pain, incontinence of bowel or bladder. Keep your appointment with Dr. Henson tomorrow Prescriptions: Cyclobenzaprine [Flexeril] 5 mg PO TID PRN 2 Days #6 tablet PRN Reason: Muscle Spasm Is patient prescribed a controlled substance at d/c from ED?: No Referrals: Purnima Joseph DO [Primary Care Provider] - 1-2 days Hai Henson DO [Doctor of Osteopathic Medicine] - 1-2 days Time of Disposition: 12:57
[2021-03-27] MEDS ORDERED: ACET/COD 300 MG/30 MG STARTER PACK 6 TAB BTL PO STA (12:56)
== END 2021-03-27 13:14 | disposition home or self-care (01) ==
LOC: EC 10:32
DX: M54.41 Lumbago with sciatica, right side (principal); I10 Essential (primary) hypertension; E78.5 Hyperlipidemia, unspecified; M19.90 Unspecified osteoarthritis, unspecified site; F32.9 Major depressive disorder, single episode, unspecified; F90.9 Attention-deficit hyperactivity disorder, unspecified type; Z79.82 Long term (current) use of aspirin
CPT/HCPCS: 99283; 96372 ×3; J2270; J2360

== ENCOUNTER → 2021-12-19 | Outpatient (CLI) | payer OTHER ==
--- NOTE | 2021-12-19 10:23 | MM ---
Reason for exam: additional evaluation requested from prior study. Last mammogram was performed 1 year ago. History: Patient is postmenopausal and had first child at age 37. Benign cyst aspiration of the right breast, 1992. Taking progesterone for 1 year beginning at age 63. Physical Findings: A clinical breast exam by your physician is recommended on an annual basis and results should be correlated with mammographic findings. MG 3D Diag Mammo W/Cad KARUNA Bilateral CC and MLO view(s) were taken. Prior study comparison: December 12, 2020, bilateral MG 3d diag mammo w/cad KARUNA. November 13, 2019, bilateral MG screening mammo w CAD. The breast tissue is heterogeneously dense. This may lower the sensitivity of mammography. No significant new findings when compared with previous films. These results were verbally communicated with the patient and result sheet given to the patient on 12/19/21. ASSESSMENT: Benign, BI-RAD 2 RECOMMENDATION: Routine screening mammogram of both breasts in 1 year.
== END | disposition home or self-care (01) ==
LOC: RADMAMWWP 09:40
PROVIDERS: ATTEND Family Medicine
DX: R92.8 Other abnormal and inconclusive findings on diagnostic imaging of breast (principal); Z78.0 Asymptomatic menopausal state
CPT/HCPCS: 77062; 77066

== ENCOUNTER → 2022-03-21 | Outpatient (CLI) | payer OTHER ==
--- NOTE | 2022-03-21 20:35 | MR ---
EXAMINATION TYPE: MR knee RT wo con DATE OF EXAM: 03/21/2022 COMPARISON: None. HISTORY: Right knee pain. TECHNIQUE: Multiplanar, multisequence imaging of the right knee is performed without IV contrast. FINDINGS: MEDIAL MENISCUS: Anterior and posterior horns are intact without tear. LATERAL MENISCUS: Lateral extrusion of lateral meniscus with horizontal increased signal does not ext end to articular surface coronal image 19. CRUCIATE LIGAMENTS: The anterior and posterior cruciate ligaments are intact and unremarkable. COLLATERAL LIGAMENTS: The medial collateral ligament and lateral collateral ligament complex are inta ct and unremarkable. EXTENSOR MECHANISM: Visualized quadriceps and patellar tendons are intact. EFFUSION: No significant suprapatellar joint effusion. POPLITEAL CYST: No popliteal/martinez cyst. TRICOMPARTMENT SPACES: Mild to moderate tricompartment joint space loss greatest patellofemoral larisa rtment. No significant spurring. CARTILAGE: Thinning of articular cartilage posterior patellar pole. BONE MARROW SIGNAL: Areas of heterogeneous increased T2 signal along the medial aspect of the posteri or patellar pole at site of full-thickness cartilaginous loss. OTHER: No additional significant abnormality is appreciated. IMPRESSION: 1. Intrasubstance tear of meniscus without definitive full-thickness tear. 2. Tricompartment degenerative changes greatest patellofemoral compartment where moderate findings ar e present as detailed above.
== END | disposition home or self-care (01) ==
LOC: RADMRIMAIN 19:00
PROVIDERS: ATTEND Orthopaedic Surgery
DX: M17.11 Unilateral primary osteoarthritis, right knee (principal); M23.321 Other meniscus derangements, posterior horn of medial meniscus, right knee

== ENCOUNTER → 2022-05-14 | Outpatient (CLI) | payer OTHER ==
[2022-05-14 22:10] LABS: Basophils # (A) 0.06 X 10*3/uL (0.00-0.10); Basophils % (A) 0.6 %; Eosinophils # (A) 0.07 X 10*3/uL (0.04-0.35); Eosinophils % (A) 0.7 %; HCT 42.4 % (37.2-46.3); HGB 13.9 g/dL (12.0-15.0); Immature Grans, Automated 0.4 %; Lymphocytes # (A) 3.21 X 10*3/uL (0.90-5.00); Lymphocytes % (A) 32.2 %; MCH 31.6 pg (27.0-32.0); MCHC 32.8 g/dL (32.0-37.0); MCV 96.4 fL (80.0-97.0); Mean Platelet Volume 10.6 fL (9.5-12.2); Monocytes # (A) 0.63 X 10*3/uL (0.20-1.00); Monocytes % (A) 6.3 %; NRBC Per 100 WBC 0 /100 WBCS (0.0-0.0); Neutrophils # (A) 5.96 X 10*3/uL (1.80-7.70); Neutrophils % (A) 59.8 %; Platelet Count 281 X 10*3/uL (140-440); RDW 14.6 % (11.5-14.5); WBC 9.97 X 10*3/uL (4.50-10.00)
[2022-05-14 22:52] LABS: Anion Gap 8.8 mmol/L (10.00-18.00); Carbon Dioxide 27.9 mmol/L (20.0-27.5); Potassium 4.2 mmol/L (3.5-5.5)
== END | disposition home or self-care (01) ==
LOC: LABPAT 14:44
PROVIDERS: ATTEND Orthopaedic Surgery
DX: Z01.812 Encounter for preprocedural laboratory examination (principal); M23.91 Unspecified internal derangement of right knee
CPT/HCPCS: 80051; 85025; 93005

== ENCOUNTER 2022-05-17 11:56 | Day surgery (SDC) | payer OTHER ==
[2022-05-14 12:44] VITALS: BMI 34.6
--- NOTE | 2022-05-17 00:48 | HP ---
HISTORY AND PHYSICAL DATE OF SURGERY: 05/17/2022 HISTORY OF PRESENT ILLNESS: Noy Troncoso is a 66-year-old patient seen with progressive right knee pain. We discussed options for treatment. She elected to proceed with right knee arthroscopy. Consent was obtained. PAST MEDICAL HISTORY: Hypertension, hyperlipidemia. PAST SURGICAL HISTORY: section, oral surgery. DAILY MEDICATIONS: Atorvastatin, lisinopril, baclofen, tramadol. ALLERGIES: Amoxicillin. SOCIAL HISTORY: She denies current tobacco use. PHYSICAL EVALUATION OF THE RIGHT KNEE: Range of motion 0 to 125. Mild effusion. Tenderness on the medial and lateral joint lines. Positive medial Ernesto's. Positive lateral Ernesto's. Ligaments are stable. Hip rotation is without pain. Distal neurovascular exam is intact. RADIOGRAPHS: Right knee radiographs revealed some osteoarthritic changes. Right knee MRI revealed lateral meniscal tear. IMPRESSION: 1. Internal derangement of right knee with lateral meniscal tear. 2. Hypertension. 3. Hyperlipidemia. PLAN: Right knee arthroscopy with partial lateral meniscectomy and debridement. MMODL / IJN: [id number] /
[~2022-05-17 11:56] MED LIST changes: -ACETAMINOPHEN TAB 500 MG TAB PO PRN; +DEXAMETHASONE SOD PHOSPHATE 4 MG/ML 1 ML VIAL IV ONE; +HYDROmorphone 0.5 MG/0.5 ML SYRINGE IVP PRN; -MELOXICAM 7.5 MG TAB PO PRN; -ONDANSETRON 4 MG/2 ML VIAL IVP ONE; +ONDANSETRON 4 MG/2 ML VIAL IVP PRN; -ROPIVACAINE/EPI/CLONIDINE/KET 50 ML SYRINGE MISCELLANE PRN; -TRANEXAMIC ACID 1,000 MG in SODIUM CHLORIDE 0.9% 100 ML IVPB PRN
[2022-05-17] MEDS ORDERED: LIDOCAINE 2% INJ 20 MG/ML (2 ML VIAL) ONE (14:04)
[2022-05-17] MEDS ORDERED: PHENYLEPHRINE-0.9% NACL SYG 1,000 MCG/10 ML SYRINGE ONE (14:04)
[2022-05-17] MEDS ORDERED: fentaNYL (PF) 50 MCG/ML 2 ML AMP ONE (14:04)
[2022-05-17] MEDS ORDERED: GLYCOPYRROLATE 0.2 MG/ML 2 ML VIAL ONE (14:04)
[2022-05-17] MEDS ORDERED: KETOROLAC 15 MG/ML 1 ML VIAL ONE (14:04)
[2022-05-17] MEDS ORDERED: PROPOFOL 10 MG/ML 20 ML VIAL IV ONE (14:04)
[2022-05-17] MEDS ORDERED: BUPIVACAIN-EPI 0.25%-1:200,000 30 ML VIAL INTRAARTIC ONE (14:07)
[2022-05-17 14:55] VITALS: RESP 16; TEMP 97
--- NOTE | 2022-05-17 14:55 | P.OP ---
Date of Procedure: 05/17/22 Preoperative Diagnosis: Internal derangement right knee Postoperative Diagnosis: 1. Tear medial and lateral meniscus right knee 2. Reactive synovitis medial, lateral and suprapatellar compartments right knee Procedure(s) Performed: 1. Arthroscopic partial medial and lateral meniscectomy right knee 2. Arthroscopic partial synovectomy medial, lateral and suprapatellar compartments right knee Anesthesia: GETA, local Surgeon: Matias Owens Estimated Blood Loss (ml): 5 Pathology: none sent Condition: stable Disposition: PACU Indications for Procedure: 66-year-old patient seen with progressive right knee pain. After having treatment options discussed, she elected to proceed with arthroscopy. Operative Findings: See description of procedure Description of Procedure: Patient was taken to the operative suite. Patient underwent a general anesthetic by the department of anesthesia. Patient was given preoperative antibiotics. The right lower extremity was placed in a well-padded arthroscopic leg marroquin. The right leg was prepped and draped in the normal sterile orthopedic fashion. A lateral parapatellar and suprapatellar incision was made. Trochars were inserted. Arthroscopy was initiated. Suprapatellar pouch revealed diffuse thick reactive synovitis. The patellofemoral joint appeared to articulate congruently. There was grade 1 chondromalacia of the patella. The scope was guided into the medial gutter. No loose bodies or plica were identified. The scope was then guided into the medial compartment. A medial parapatellar incision was made. Trocar inserted followed by probe. There was a complex tear posterior horn medial meniscus. There were grade 1 chondromalacia changes involving the tibial plateau. There was some thick reactive synovitis anteriorly. I performed a partial medial meniscectomy getting down to stable meniscal tissue. I performed a partial synovectomy decompressing the reactive synovitis. The residual meniscus was probed and was found to be stable. There was good decompression of the synovitis. Scope and probe were then guided into the intercondylar notch. Cruciates were identified, probed and found to be stable. The scope and probe were then guided into lateral compartment. There was a tear involving the posterior horn lateral meniscus. There was thick reactive synovitis anteriorly. There was grade 1/2 chondromalacia changes of the lateral tibial plateau. I performed a partial lateral meniscectomy getting down to stable meniscal tissue. I performed a partial synovectomy decompressing the reactive synovitis. The residual meniscus was probed and was found to be stable. There was good decompression of synovitis. The scope was in guided back into the suprapatellar compartment. I introduced a motorized shaver into the super patellar compartment. I debrided some piecemeal fragments of meniscus that I encountered. I performed a partial synovectomy. The shaver was removed. There was good decompression of synovitis. I now took one more look around the entire knee, no residual debris. Instruments were now removed from the joint. The joint was infiltrated with .25% Marcaine. Steri-Strips were applied to the portal sites. Sterile dressings were applied. The patient was placed into a SYDNI hose. No tourniquet was utilized. The patient was awakened, transferred to a bed and taken to recovery stable satisfactory condition.
[2022-05-17] MEDS ORDERED: HYDROcodone/APAP 5-325MG 1 EACH TAB PO ONE (15:42)
[2022-05-17] MEDS ORDERED: HYDROcodone/APAP 5-325MG 1 EACH TAB ONE (15:43)
[2022-05-17 16:10] VITALS: BP 120/65; PULSE 73
== END 2022-05-17 16:21 | disposition home or self-care (01) ==
LOC: OR 11:56
PROVIDERS: ATTEND Orthopaedic Surgery
DX: M23.221 Derangement of posterior horn of medial meniscus due to old tear or injury, right knee (principal); M23.251 Derangement of posterior horn of lateral meniscus due to old tear or injury, right knee; M65.861 Other synovitis and tenosynovitis, right lower leg; M22.41 Chondromalacia patellae, right knee; I10 Essential (primary) hypertension; E78.5 Hyperlipidemia, unspecified; F32.A Depression, unspecified; Z88.0 Allergy status to penicillin; Z79.899 Other long term (current) drug therapy; Z87.891 Personal history of nicotine dependence; Z80.52 Family history of malignant neoplasm of bladder; Z82.49 Family history of ischemic heart disease and other diseases of the circulatory system; Z82.3 Family history of stroke; Z81.8 Family history of other mental and behavioral disorders
CPT/HCPCS: 29876; 29880; J1100; J0690; J2405; J3010; J1885; J2370; J2704; J2001

== ENCOUNTER → 2022-12-21 | Outpatient (CLI) | payer OTHER ==
--- NOTE | 2022-12-24 18:55 | MM ---
Reason for Exam: Screening (asymptomatic). Last screening mammogram was performed 12 month(s) ago. Patient History: Menarche at age 15. First Full-Term at age 37. Late child-bearing (after 30). Postmenopausal. Progesterone, starting at age 63 for 1 year. 1992, Benign Cyst Aspiration on the right side. Risk Values: Kary 5 year model risk: 2.2%. NCI Lifetime model risk: 8.9%. Prior Study Comparison: 11/13/2019 Bilateral Screening Mammogram, [facility]. 12/12/2020 Bilateral Diagnostic Mammogram, [facility]. 12/19/2021 Bilateral Diagnostic Mammogram, [facility]. Tissue Density: The breast tissue is heterogeneously dense. This may lower the sensitivity of mammography. Findings: Analyzed By CAD. Faint 12:00 grouped punctate calcifications on the left are unchanged. There is no suspicious group of microcalcifications or new suspicious mass in either breast. Overall Assessment: Benign, BI-RAD 2 Management: Screening Mammogram of both breasts in 1 year. 1. Patient should continue monthly self breast exams. 2. A clinical breast exam by your physician is recommended on an annual basis. 3. This exam should not preclude additional follow-up of suspicious palpable abnormalities. Electronically signed and approved by: Radha Orozco M.D. Radiologist
== END | disposition home or self-care (01) ==
LOC: RADMAMWWP 15:42
PROVIDERS: ATTEND Family Medicine
DX: Z12.31 Encounter for screening mammogram for malignant neoplasm of breast (principal); Z78.0 Asymptomatic menopausal state
CPT/HCPCS: 77067

== ENCOUNTER → 2023-03-29 | Outpatient (CLI) | payer OTHER ==
--- NOTE | 2023-03-31 20:42 | MR ---
EXAMINATION TYPE: MR knee RT wo con DATE OF EXAM: 03/29/2023 COMPARISON: Prior right knee MRI March 21, 2022 HISTORY: Rt knee pain and swelling for 2 to 3 weeks. TECHNIQUE: Multiplanar, multisequence images of the knee is performed without IV contrast. FINDINGS: MEDIAL MENISCUS: Triangular-shaped signal posterior horn is now present extending to inferior articul ar surface. LATERAL MENISCUS: Lateral extrusion with Subtle horizontal intralobular increased signal does not def initively extend to articular surface is redemonstrated. CRUCIATE LIGAMENTS: The anterior and posterior cruciate ligaments are intact and unremarkable. COLLATERAL LIGAMENTS: The medial collateral ligament and lateral collateral ligament complex are inta ct. Fluid signal now surrounds the medial collateral ligament. Some increased signal and thickening o f the proximal biceps femoris attachment. EXTENSOR MECHANISM: Visualized quadriceps and patellar tendons are intact. EFFUSION: Now moderate-sized suprapatellar joint effusion. POPLITEAL CYST: No popliteal/martinez cyst. TRICOMPARTMENT SPACES: Puti-hi-uuarhlcm tricompartment joint space loss redemonstrated. No significan t spurring. CARTILAGE: Chondromalacia patella redemonstrated with thinning of articular cartilage along the poste rior patellar pole. BONE MARROW SIGNAL: Areas of heterogeneous increased T2 signal involving the medial aspect of the pos terior patella are redemonstrated. New focus of diminished T1 and increased T2 signal measuring 5 mm transversely coronal image 18 involving the distal lateral femoral condyle. OTHER: No additional significant abnormality is appreciated. IMPRESSION: 1. Persistent at least intrasubstance tear of the lateral meniscus. 2. New full-thickness tear posterior horn medial meniscus. 3. New moderate size patellar joint effusion. 4. Tricompartmental degenerative changes that are fairly moderate as detailed above similar to prior. 5. New mild MCL sprain injury. 6. Possible chronic sprain injury to portion of the lateral collateral ligament complex.
== END | disposition home or self-care (01) ==
LOC: RADMRIMAIN 06:27
PROVIDERS: ATTEND Orthopaedic Surgery
DX: S83.241A Other tear of medial meniscus, current injury, right knee, initial encounter (principal); S83.281A Other tear of lateral meniscus, current injury, right knee, initial encounter; M17.11 Unilateral primary osteoarthritis, right knee

== ENCOUNTER → 2023-06-17 | Outpatient (CLI) | payer OTHER ==
[~2023-06-17] MED LIST changes: -DEXAMETHASONE SOD PHOSPHATE 4 MG/ML 1 ML VIAL IV ONE; -HYDROmorphone 0.5 MG/0.5 ML SYRINGE IVP PRN; -LACTATED RINGERS 1,000 ML IV SCH; -LIDOCAINE 1% (10MG/ML) FOR IV START INTRADERMA PRN; -ONDANSETRON 4 MG/2 ML VIAL IVP PRN; +REGADENOSON 0.4 MG/5 ML SYRINGE IV PRN
--- NOTE | 2023-06-17 11:23 | CA ---
Lexiscan Nuclear Stress Test Report Name: Caty Troncoso Exam Date: 06/17/2023 09:57 Exam Location: [facility] Stress Ht (in): 65 Wt (lb): 210 BSA: 2.02 Ordering Phys: Purnima Joseph DO Referring Phys: Teri Goodman PAC Technologist: Chris Pompa Age: 67 Gender: F : 1955 Procedure CPT: Indications: R94.31 ABNORMAL ELECTROCARDIOGRAM ICD-10 Codes: Patient History: HTN, ELEVATED CHOLESTEROL LEVELS, FAMILY HX OF HEART DISEASE Medications: Meds past 24 hrs: Pretest Chest Pain: STRESS TEST Lexiscan Protocol Exercise Duration (min:sec): 02:[address] Depressions (mm): Angina Score: Saavedra Score: Resting HR (bpm): 57 Peak HR (bpm): 78 Resting BP (mmHg): 124 / 49 Peak BP (mmHg): 212 / 50 MPHR: 155 Target HR: 132 % MPHR: 50 METS: 1.0 Total Dose: Peak Dose: Atropine: Double Product: 30797 BP Response: Stress Termination: INFUSION COMPLETE Stress Symptoms: NO SYMPTOMS Stress Summary: ECG ANALYSIS Resting ECG: Sinus rhythm. Normal conduction. No arrhythmias. Normal repolarization. Stress ECG: No ECG changes from baseline with Lexiscan infusion. CONCLUSIONS No ECG evidence of ischemia with Lexiscan infusion. Nuclear test results to follow. Dr. Latosha Olvera MD (Electronically Signed) Final Date: 17 June 2023 11:22
--- NOTE | 2023-06-17 15:16 | NM ---
EXAMINATION TYPE: NM stress lexiscan cardiolite DATE OF EXAM: 06/17/2023 COMPARISON: NONE CLINICAL INDICATION: Female, 67 years old with history of R94.31 ABNORMAL ELECTROCARDIOGRAM; TECHNIQUE: After the intravenous administration of 9.5 mCi Tc 99m Sestamibi - Cardiolite resting SPE CT images acquired 60 minutes post injection. The patient received 0.4mg Lexiscan, 25.5 mCi Tc 99m Sestamibi - Stress images obtained [address] injection FINDINGS: Review of stress and rest SPECT images demonstrates no distinct perfusion abnormality. Gated analysi s shows normal wall motion with an estimated left ventricular ejection fraction of 63 %. IMPRESSION: No scintigraphic evidence for reversible ischemia.
== END | disposition home or self-care (01) ==
LOC: RADNMMAIN 07:46
PROVIDERS: ATTEND Family Medicine
DX: R94.31 Abnormal electrocardiogram [ECG] [EKG] (principal); R06.00 Dyspnea, unspecified
CPT/HCPCS: 93017; 78452; A9500; J2785

== ENCOUNTER → 2023-08-22 | Outpatient (CLI) | payer OTHER ==
--- NOTE | 2023-08-24 14:08 | MR ---
EXAMINATION TYPE: MR lumbar spine wo con DATE OF EXAM: 08/22/2023 5:28 PM CLINICAL INDICATION:Female, 67 years old with history of M51.36 DISC DEGENERATION; PHH, Lower back pa in, radiates into buttocks. COMPARISON: 10/24/2019 TECHNIQUE: Multi planar, multi sequence imaging was performed utilizing: T1-weighted, T2-weighted, a nd turbo inversion recovery imaging of the lumbar spine. IV Contrast: (None if empty) FINDINGS: Alignment: The lumbar vertebral bodies have preserved heights with grade 1 anterolisthesis of L4 on L 5. Cord: The conus medullaris and the distal spinal cord appear unremarkable with regards to their signa l intensity and morphology. Bones/Discs: Mild degeneration changes throughout the spine with osteophyte formation and facet joint arthropathy. Impression recovery signal reactive edema at the adjoining endplates of T12 and L1. Mul tilevel disc desiccation is present. T12-L1: No evidence of significant spinal canal stenosis or neural foraminal stenosis. L1-L2: No evidence of significant spinal canal stenosis. Facet joint arthropathy moderate bilateral n eural foraminal stenosis. L2-L3: No evidence of significant spinal canal stenosis. Facet joint arthropathy mild to moderate lynnette ateral neural foraminal stenosis. L3-L4: No evidence of significant spinal canal stenosis. Facet joint arthropathy mild to moderate lynnette ateral neural foraminal stenosis. L4-L5: Disc uncovering from grade 1 anterolisthesis and facet joint arthropathy with severe spinal ca nal stenosis and mild bilateral neural foraminal stenosis. L5-S1: The disc is rounded posterior morphology without significant spinal canal stenosis. Facet join t arthropathy with moderate left and mild right bilateral neural foraminal stenosis. No significant spinal canal or neural foraminal stenosis in the remainder of the visualized levels. Other findings: None. IMPRESSION: 1. Grade 1 anterolisthesis of L4 and L5 with severe spinal canal stenosis. Findings similar to 2019. 2. Mild to moderate disc degeneration with varying degrees of neural foraminal stenosis throughout t he spine as described above.
== END | disposition home or self-care (01) ==
LOC: RADMRIMAIN 16:52
PROVIDERS: ATTEND Physical Medicine & Rehabilitation
DX: M51.36 Other intervertebral disc degeneration, lumbar region (principal); M43.16 Spondylolisthesis, lumbar region; M48.061 Spinal stenosis, lumbar region without neurogenic claudication
CPT/HCPCS: 72148

== ENCOUNTER → 2024-01-09 | Outpatient (CLI) | payer OTHER ==
--- NOTE | 2024-01-10 12:16 | MM ---
Reason for Exam: Screening (asymptomatic). Last mammogram was performed 1 year(s) and 1 month(s) ago. Patient History: Menarche at age 15. First Full-Term at age 37. Late child-bearing (after 30). Postmenopausal. Progesterone, starting at age 63 for 1 year. 1992, Benign Cyst Aspiration on the right side. Risk Values: Kary 5 year model risk: 2.3%. NCI Lifetime model risk: 8.2%. Prior Study Comparison: 12/12/2020 Bilateral Diagnostic Mammogram, [facility]. 12/19/2021 Bilateral Diagnostic Mammogram, [facility]. 12/21/2022 Bilateral MG screening mammo w CAD, [facility]. Tissue Density: The breasts are heterogeneously dense, which may obscure small masses. Findings: Analyzed By CAD. There is no suspicious group of microcalcifications or new suspicious mass in either breast. Overall Assessment: Negative, BI-RAD 1 Management: Screening Mammogram of both breasts in 1 year. . Patient should continue monthly self-breast exams. A clinical breast exam by your physician is recommended on an annual basis. This exam should not preclude additional follow-up of suspicious palpable abnormalities. Note on Kary scores and lifetime risk: 1. A Kary score greater than 3% is considered moderate risk. If this is the case, consider specialist referral to assess eligibility for a risk reducing agent. 2. If overall lifetime risk for the development of breast cancer is 20% or higher, the patient may qualify for future screening with alternating mammogram and breast MRI. Electronically signed and approved by: Arnol Harper M.D. Radiologis
== END | disposition home or self-care (01) ==
LOC: RADMAMWWP 15:15
PROVIDERS: ATTEND Family Medicine
DX: Z12.31 Encounter for screening mammogram for malignant neoplasm of breast (principal); Z78.0 Asymptomatic menopausal state
CPT/HCPCS: 77067

== ENCOUNTER → 2024-05-26 | Outpatient (CLI) | payer OTHER ==
--- NOTE | 2024-06-22 13:51 | CONS ---
CONSULTATION REASON FOR CONSULTATION: Sleep apnea. HISTORY OF PRESENT ILLNESS: This is a pleasant 68-year-old female patient presenting [facility] due to concerns of sleep apnea. The patient snores a lot. The patient is currently sleeping in a separate bedroom as her sleep is quite restless and she is unable to share the same bedroom with her . She has gained weight over the years and recently she is on Wegovy, she has lost around 35 pounds. It seem that her weight has plateaued and despite that she continues to snore. She goes to bed at around 12 a.m., wakes up between 6 and 7 a.m. in the morning. She feels quite fatigued and tired, especially late in the afternoons. She avoids to take a nap, however, on several days a week she ended up taking a late afternoon nap. She drinks around 2 to 3 cups of coffee in the morning. She is smoking. She smokes one-half pack of cigarettes a day. No congestion heart failure. No myocardial infarction. No history of any motor vehicle accident because of feeling drowsy or sleepy. No history of atrial fibrillation. PAST MEDICAL HISTORY: 1. Hypertension. 2. Bipolar disorder/depression. 3. ADHD. 4. Hyperlipidemia. PAST SURGICAL HISTORY: Includes bilateral hip replacements. ALLERGIES: Drug allergies are not known. MEDICATIONS: Include; 1. Lisinopril 20 mg p.o. daily. 2. Lamictal 150 mg twice a day. 3. Concerta. 4. Effexor 75 mg p.o. daily. 5. Latuda 40 mg p.o. daily. 6. Zetia 10 mg p.o. daily. 7. Lipitor 80 mg p.o. daily and will go every 1 week. FAMILY HISTORY: Negative for sleep apnea. REVIEW OF SYSTEMS: A 12-point review of system was done. Of significance is positive for weight loss along with the use of Wegovy. No issues with insomnia. No nocturia. No grinding of the teeth. No restlessness in lower extremities. No sleepwalking or sleep talking. No heartburn. No palpitations. No anxiety attacks. Her mental health is well controlled with the above-mentioned treatment. PHYSICAL EXAMINATION: VITAL SIGNS: BP is 127/70, pulse 70, respirations 16, temperature 98.3, weight is 183 pounds. [place] score is at 10. Neck size 17. BMI 31.9. GENERAL APPEARANCE: Calm and comfortable. HEAD: Atraumatic and normocephalic. NECK: Supple. There is no JVD. No goiter or neck masses. Mallampati class 4. LUNGS: Clear to auscultation. CARDIAC: Heart sounds regular rate and rhythm. Normal S1, S2. No S3, S4. No murmurs. ABDOMEN: Soft. No tenderness, EXTREMITIES: No edema, no cyanosis or clubbing. NEUROLOGICAL: Neurologically the patient is awake, alert. There is no focal neurological deficit at this point in time. ASSESSMENT: 1. Sleep apnea, clinically suspected. The patient has snoring and sleep fragmentation, excessive tiredness with an [place] score of 10. 2. Obesity with interval 35 pounds weight loss along with use of Wegovy. Current body mass index of 31.9 with a weight of 183 pounds. 3. Hypertension. 4. Bipolar disorder. 5. Depression. 6. Attention deficit hyperactivity disorder. 7. Hyperlipidemia. PLAN: Encourage further weight loss. Proceed with a screening polysomnography to rule out underlying obstructive sleep apnea. Maintain good sleep hygiene measures. Maintain regular sleep schedule. We will see the patient in the office following her sleep study to make further recommendations regarding the sleep study. MMODL / IJN: [id number] /
== END ==
LOC: 3 N SLEEP 15:15
PROVIDERS: ATTEND Internal Medicine Critical Care Medicine
CPT/HCPCS: 99211

== ENCOUNTER 2024-08-18 10:47 | Observation (INO) | payer OTHER ==
--- NOTE | 2024-08-18 11:03 | ED ---
General Adult HPI - General Chief complaint: Dizziness Stated complaint: Fall-Dizziness Time Seen by Provider: 08/18/24 11:00 Source: patient, EMS, RN notes reviewed, old records reviewed Mode of arrival: EMS - History of Present Illness Initial comments: This is a 68-year-old female who presents to the emergency department stating that she got up this morning and felt fine but after little while she all of a sudden was dizzy to the point where she Bouncing off the simmons. Patient states she went down to her knees at 1 point and then was so dizzy underneath she tripped over and hit her head on some flagstone. Patient states she is not on any blood thinners. Patient denies any headache. Patient denies any numbness weakness. Patient has any neck pain. Patient states sitting in bed the dizziness is much improved. Patient denies any fever chills or cough. Patient denies any nausea vomiting diarrhea patient denies any chest pain palpitations or difficulty breathing - Related Data Home Medications Medication Instructions Recorded Confirmed Venlafaxine HCl ER [Effexor Xr] 75 mg PO DAILY 03/26/18 05/03/23 lisinopriL [Zestril] 20 mg PO QAM 03/26/18 05/03/23 Atorvastatin [Lipitor] 80 mg PO HS 05/14/22 05/03/23 Ezetimibe [Zetia] 10 mg PO HS 05/14/22 05/03/23 Methylphenidate HCl 36 mg PO DAILY 05/03/23 05/03/23 [Methylphenidate HCl ER] lamoTRIgine [LaMICtal Xr] 300 mg PO BID 05/03/23 05/03/23 traMADol HCL 50 mg PO BID PRN 05/03/23 05/03/23 Allergies Allergy/AdvReac Type Severity Reaction Status Date / Time No Known Allergies Allergy Verified 08/18/24 10:55 Review of Systems ROS Statement: Those systems with pertinent positive or pertinent negative responses have been documented in the HPI. ROS Other: All systems not noted in ROS Statement are negative. Past Medical History Past Medical History: Hyperlipidemia, Hypertension, Osteoarthritis (OA) Additional Past Medical History / Comment(s): oroantral fistula History of Any Multi-Drug Resistant Organisms: None Reported Past Surgical History: Section, Joint Replacement Additional Past Surgical History / Comment(s): Sinus surgery, dental implants, teeth extracted, bilateral cataracts, oral fistula repair 2018, bilateral hip replacements. Past Anesthesia/Blood Transfusion Reactions: Previous Problems w/ Anesthesia Additional Past Anesthesia/Blood Transfusion Reaction / Comment(s): No hx blood transfusion. "Uvula swells up sometimes after Anesthesia". Past Psychological History: ADD/ADHD, Bipolar, Depression Smoking Status: Current every day smoker Past Alcohol Use History: Rare Past Drug Use History: None Reported - Past Family History Brother(s) Family Medical History: Cancer Additional Family Medical History / Comment(s): Bladder cancer. Father Family Medical History: Myocardial Infarction ([place]) Mother Family Medical History: CVA/TIA, Dementia Additional Family Medical History / Comment(s): Passed of a hemorrhagic stroke. Maternal Grandma, 2 maternal aunts hemorrhagic stroke. General Exam - General Exam Comments Initial Comments: GENERAL: Patient is well-developed and well-nourished. Patient is nontoxic and well- hydrated and is in mild distress. ENT: Neck is soft and supple. No significant lymphadenopathy is noted. Oropharynx is clear. Moist mucous membranes. Neck has full range of motion without eliciting any pain. EYES: The sclera were anicteric and conjunctiva were pink and moist. Extraocular movements were intact and pupils were equal round and reactive to light. Eyel ids were unremarkable. PULMONARY: Unlabored respirations. Good breath sounds bilaterally. No audible rales rhonchi or wheezing was noted. CARDIOVASCULAR: There is a regular rate and rhythm without any murmurs gallops or rubs. ABDOMEN: Soft and nontender with normal bowel sounds. SKIN: Skin is clear with no lesions or rashes and otherwise unremarkable. NEUROLOGIC: Patient is alert and oriented x3. Cranial nerves II through XII are grossly intact. Motor and sensory are also intact. Normal speech, volume and content. Symmetrical smile. Nystagmus when looking to the right MUSCULOSKELETAL: Normal extremities with adequate strength and full range of motion. [id number] LYMPHATICS: No significant lymphadenopathy is noted PSYCHIATRIC: Normal psychiatric evaluation. Course Vital Signs 08/18/24 08/18/24 10:49 14:22 Temperature 98.0 F Pulse Rate 56 L 56 L Respiratory 20 16 Rate Blood Pressure 179/70 115/52 O2 Sat by Pulse 97 96 Oximetry Medical Decision Making - Medical Decision Making EKG is interpreted by myself EKG shows sinus bradycardia 59 bpm NE 105 QRS is 104 QT interval is 409 QTc is 4 1. Patient's EKG shows no ST segment elevation or depression. Was pt. sent in by a medical professional or institution ([facility], [facility], urgent care, hospital, or half-way...) When possible be specific @ -No Did you speak to anyone other than the patient for history (EMS, parent, family, police, friend...)? What history was obtained from this source @ -No Did you review nursing and triage notes (agree or disagree)? Why? @ -I reviewed and agree with nursing and triage notes Were old charts reviewed (outside hosp., previous admission, EMS record, old EKG , old radiological studies, urgent care reports/EKG's, half-way records)? Report findings @ -No old charts were reviewed Differential Diagnosis? @ -Differential Dizziness: Benign paroxysmal positional Vertigo, Meniere's disease, otitis media, acoustic neuroma, vertebrobasilar insufficiency, cerebellar stroke, encephalitis, hypovolemic, arrhythmia, coronary artery syndrome, anemia, this is not meant to be an all-inclusive list EKG interpreted by me (3pts min.). @ -As above X-rays interpreted by me (1pt min.). @ -Chest x-ray shows no acute abnormality CT interpreted by me (1pt min.). @ -CT of the brain shows no acute abnormality CT angiogram of the head and neck shows no acute abnormality U/S interpreted by me (1pt. min.). @ -None done What testing was considered but not performed or refused? (CT, X-rays, U/S, labs)? Why? @ -None What meds were considered but not given or refused? Why? @ -None Did you discuss the management of the patient with other professionals (professionals i.e. [facility] Harrison, [facility], lab, RT, psych nurse, social studies department chair, waste management specialist, teacher, personal banking officer, case assistant)? Give summary @ -No Was smoking cessation discussed for >3mins.? @ -No Was critical care preformed (if so, how long)? @ -No Were there social determinants of health that impacted care today? How? (Johana elessness, low income, unemployed, alcoholism, drug addiction, transportation, low edu. Level, literacy, decrease access to med. care, long term, rehab)? @ -No Was there de-escalation of care discussed even if they declined (Discuss DNR or withdrawal of care, Hospice)? DNR status @ -No What co-morbidities impacted this encounter? (DM, HTN, Smoking, COPD, CAD, Cancer, CVA, ARF, Chemo, Hep., AIDS, mental health diagnosis, sleep apnea, morbid obesity)? @ -None Was patient admitted / discharged? Hospital course, mention meds given and route, prescriptions, significant lab abnormalities, going to OR and other pertinent info. @ -Patient's initial lab work and CT were negative I went back to discharge the patient however the family member was with the patient at this time and family member mentioned that this morning the patient was having slurred speech and was very confused this morning and it sounded more like the patient might of had strokelike symptoms this morning and so at this time a CT angiogram was done which was negative and the patient will be admitted. Undiagnosed new problem with uncertain prognosis? @ -No Drug Therapy requiring intensive monitoring for toxicity (Heparin, Nitro, Insulin, Cardizem)? @ -No Were any procedures done? @ -No Diagnosis/symptom? @ -TIA Acute, or Chronic, or Acute on Chronic? @ -Acute Uncomplicated (without systemic symptoms) or Complicated (systemic symptoms)? @ -Complicated Side effects of treatment? @ -No Exacerbation, Progression, or Severe Exacerbation? @ -No Poses a threat to life or bodily function? How? (Chest pain, [place], [place], pneumonia, PE, COPD, DKA, ARF, appy, cholecystitis, CVA, Diverticulitis, Homicidal, Suicidal, threat to staff... and all critical care pts) @ -Yes this could lead to a stroke and endorgan dysfunction Diagnosis/symptom? @ -Vertigo Acute, or Chronic, or Acute on Chronic? @ -Acute Uncomplicated (without systemic symptoms) or Complicated (systemic symptoms)? @ -Complicated Side effects of treatment? @ -None Exacerbation, Progression, or Severe Exacerbation] @ -No Poses a threat to life or bodily function? @ -No - Lab Data Result diagrams: 08/18/24 11:08/18/24 11:13 Lab Results 08/18/24 08/18/24 08/18/24 Range/Units 11:13 11: 11:13 WBC 8.6 (3.8-10.6) k/uL RBC 4.21 (3.80-5.40) m/uL Hgb 13.3 (11.4-16.0) gm/dL Hct 41.4 (34.0-46.0) % MCV 98.2 (80.0-100.0) fL MCH 31.6 (25.0-35.0) pg MCHC 32.2 (31.0-37.0) g/dL RDW 13.5 (11.5-15.5) % Plt Count 275 (150-450) k/uL MPV 7.5 Neutrophils % 59 % Lymphocytes % 31 % Monocytes % 6 % Eosinophils % 1 % Basophils % 0 % Neutrophils # 5.1 (1.3-7.7) k/uL Lymphocytes # 2.7 (1.0-4.8) k/uL Monocytes # 0.5 (0-1.0) k/uL Eosinophils # 0.1 (0-0.7) k/uL Basophils # 0.0 (0-0.2) k/uL PT 10.7 (10.0-12.5) sec INR 1.0 (<1.2) APTT 20.5 L (22.0-30.0) sec Sodium 138 (137-145) mmol/L Potassium 4.6 (3.5-5.1) mmol/L Chloride 109 H (98-107) mmol/L Carbon Dioxide 26 (22-30) mmol/L Anion Gap 3 mmol/L BUN 26 H (7-17) mg/dL Creatinine 0.74 (0.52-1.04) mg/dL Est GFR (CKD-EPI)AfAm >90 (>60 ml/min/1.73 sqM) Est GFR (CKD-EPI)NonAf 85 (>60 ml/min/1.73 sqM) Glucose 102 H (74-99) mg/dL Calcium 10.1 (8.4-10.2) mg/dL Magnesium 2.1 (1.6-2.3) mg/dL Total Bilirubin 0.4 (0.2-1.3) mg/dL AST 26 (14-36) U/L ALT 23 (4-34) U/L Alkaline Phosphatase 85 (38-126) U/L Troponin I (0.000-0.034) ng/mL Total Protein 6.4 (6.3-8.2) g/dL Albumin 4.4 (3.5-5.0) g/dL 08/18/24 Range/Units 11:13 WBC (3.8-10.6) k/uL RBC (3.80-5.40) m/uL Hgb (11.4-16.0) gm/dL Hct (34.0-46.0) % MCV (80.0-100.0) fL MCH (25.0-35.0) pg MCHC (31.0-37.0) g/dL RDW (11.5-15.5) % Plt Count (150-450) k/uL MPV Neutrophils % % Lymphocytes % % Monocytes % % Eosinophils % % Basophils % % Neutrophils # (1.3-7.7) k/uL Lymphocytes # (1.0-4.8) k/uL Monocytes # (0-1.0) k/uL Eosinophils # (0-0.7) k/uL Basophils # (0-0.2) k/uL PT (10.0-12.5) sec INR (<1.2) APTT (22.0-30.0) sec Sodium (137-145) mmol/L Potassium (3.5-5.1) mmol/L Chloride (98-107) mmol/L Carbon Dioxide (22-30) mmol/L Anion Gap mmol/L BUN (7-17) mg/dL Creatinine (0.52-1.04) mg/dL Est GFR (CKD-EPI)AfAm (>60 ml/min/1.73 sqM) Est GFR (CKD-EPI)NonAf (>60 ml/min/1.73 sqM) Glucose (74-99) mg/dL Calcium (8.4-10.2) mg/dL Magnesium (1.6-2.3) mg/dL Total Bilirubin (0.2-1.3) mg/dL AST (14-36) U/L ALT (4-34) U/L Alkaline Phosphatase (38-126) U/L Troponin I <0.012 (0.000-0.034) ng/mL Total Protein (6.3-8.2) g/dL Albumin (3.5-5.0) g/dL Disposition Clinical Impression: TIA (transient ischemic attack), Vertigo Disposition: ADMITTED IP TO THIS HOSP Referrals: Brian Joseph MD [Primary Care Provider] - 1-2 days Time of Disposition: 14:28
[2024-08-18] MEDS: MECLIZINE 25 MG TAB PO STA (11:17)
[2024-08-18] MEDS: SODIUM CHLORIDE 0.9% 500 ML 500 ML IV STA (11:19)
[2024-08-18 11:20] LABS: Basophils % (A) 0 %; Eosinophils # (A) 0.1 k/uL (0-0.7); Eosinophils % (A) 1 %; HCT 41.4 % (34.0-46.0); HGB 13.3 gm/dL (11.4-16.0); Lymphocytes # (A) 2.7 k/uL (1.0-4.8); Lymphocytes % (A) 31 %; MCH 31.6 pg (25.0-35.0); MCHC 32.2 g/dL (31.0-37.0); MCV 98.2 fL (80.0-100.0); Mean Platelet Volume 7.5; Monocytes # (A) 0.5 k/uL (0-1.0); Monocytes % (A) 6 %; Neutrophils # (A) 5.1 k/uL (1.3-7.7); Neutrophils % (A) 59 %; Platelet Count 275 k/uL (150-450); RBC 4.21 m/uL (3.80-5.40); RDW 13.5 % (11.5-15.5); WBC 8.6 k/uL (3.8-10.6)
[2024-08-18 11:32] LABS: ALT 23 U/L (4-34); AST 26 U/L (14-36); African American GFR (CKD) >90 (>60 ml/min/1.73 sqM); Albumin 4.4 g/dL (3.5-5.0); Alkaline Phosphatase 85 U/L (38-126); Anion Gap 3 mmol/L; Blood Urea Nitrogen 26 mg/dL (7-17); Calcium 10.1 mg/dL (8.4-10.2); Carbon Dioxide 26 mmol/L (22-30); Chloride 109 mmol/L (98-107); Glucose 102 mg/dL (74-99); Magnesium 2.1 mg/dL (1.6-2.3); Non-African American GFR(CKD) 85 (>60 ml/min/1.73 sqM); Potassium 4.6 mmol/L (3.5-5.1); Sodium 138 mmol/L (137-145); Total Bilirubin 0.4 mg/dL (0.2-1.3); Total Protein 6.4 g/dL (6.3-8.2)
--- NOTE | 2024-08-18 11:47 | XR ---
EXAMINATION TYPE: XR chest 2V DATE OF EXAM: 08/18/2024 11:42 AM COMPARISON: None. CLINICAL INDICATION: Female, 68 years old with history of Chest Pain, TECHNIQUE: XR chest 2V view(s) obtained. FINDINGS: The heart size is normal. The pulmonary vasculature is normal. The lungs are clear. IMPRESSION: 1. No acute pulmonary process. [facility], , 08/18/2024 11:45 AM
[2024-08-18 12:05] LABS: Prothrombin Time 10.7 sec (10.0-12.5)
[2024-08-18 12:32] LABS: Partial Thromboplastin Time 20.5 sec (22.0-30.0)
--- NOTE | 2024-08-18 13:32 | CT ---
EXAMINATION TYPE: CT brain wo con CT DLP: 1125.4 mGycm, Automated exposure control for dose reduction was used. DATE OF EXAM: 08/18/2024 11:38 AM COMPARISON: None. CLINICAL INDICATION:Female, 68 years old with history of Fall head trauma, pain. TECHNIQUE: Brain: Multiple axial CT images of the brain were obtained without IV contrast. . Coronal and sagitta l reformats reviewed. FINDINGS: Brain: Extra-axial spaces: No abnormal extra-axial fluid collections. Ventricular system: Within normal limits Cerebral parenchyma: No acute intraparenchymal hemorrhage or mass effect. The hidalgo-white junction is well differentiated. Scattered hypoattenuating areas are seen within the periventricular white matte r. Cerebellum: Unremarkable. Mass effect: No evidence of midline shift. Intracranial vasculature: unremarkable Soft tissues: Small right posterior scalp hematoma measuring 4 mm in thickness. Calvarium/osseous structures: No depressed skull fracture. Paranasal sinuses and mastoid air cells: Minimal scattered paranasal sinus disease. Bilateral maxilla ry synechiae. Visualized orbits: Orbital contents are intact. IMPRESSION: 1. No acute intracranial process. 2. Small right posterior scalp hematoma. 3. Nonspecific white matter changes, likely secondary to chronic small vessel ischemic disease. [facility], , 08/18/2024 11:45 AM
--- NOTE | 2024-08-18 14:33 | CT ---
EXAMINATION TYPE: CT angio head neck CT DLP: 529.9 mGycm, Automated exposure control for dose reduction was used. DATE OF EXAM: 08/18/2024 2:24 PM COMPARISON: CT brain 08/18/2024. CLINICAL INDICATION:Female, 68 years old with history of Stroke; PHH, stroke TECHNIQUE: Axially acquired helical CT angiogram of the head and neck was obtained with contrast util izing 75 cc of Isovue-370 administered intravenously. Axial images are supplemented with 3D reconstru ctions which were post-processed at an independent workstation. NASCET criteria used. FINDINGS: CTA HEAD: No evidence of acute intracranial hemorrhage, mass effect, or midline shift. The ventricles, sulci, a nd cisterns are unremarkable. The visualized portions of the internal carotid arteries, middle cerebral arteries, anterior cerebral arteries, and posterior cerebral arteries are patent. The basilar and vertebral arteries are patent. CTA NECK: Right Carotid System: The common carotid artery and external carotid artery are patent. The carotid bifurcation demonstrate s no evidence of hemodynamically significant stenosis. The remaining portions of the internal carotid artery demonstrate normal size without significant narrowing. Left Carotid System: The common carotid artery and external carotid artery are patent. The carotid bifurcation demonstrate s no evidence of hemodynamically significant stenosis. The remaining portions of the internal carotid artery demonstrate normal size without significant narrowing. Vertebral arteries are patent without evidence hemodynamically significant stenosis. There is a three-vessel aortic arch. The origins of the great vessels are patent. No evidence of hemo dynamically significant stenosis. Multilevel degenerative disc disease of the cervical spine. Reversal of the normal cervical lordosis. Most prominent degenerative disc disease at C6-C7. Minimal mucosal thickening in the inferior left m axillary sinus. IMPRESSION: 1. No evidence of dissection of the cervical internal carotid arteries or vertebral arteries or any e vidence of significant stenosis at the carotid bifurcations. 2. No evidence of high-grade stenosis or intracranial aneurysm. [facility], , 08/18/2024 2:30 PM
[2024-08-18] MEDS ORDERED: MECLIZINE 25 MG TAB PO PRN (14:36)
[2024-08-18] MEDS: LURASIDONE 40 MG TAB PO SCH (21:17)
[2024-08-18] MEDS: lamoTRIgine 100 MG TAB PO SCH (21:17)
[2024-08-18] MEDS: ATORVASTATIN 80 MG TAB PO SCH (21:17)
[2024-08-18] MEDS: LATANOPROST 0.005% OPHTH DROPS 2.5 ML BTL BOTH EYES SCH (21:17)
[2024-08-19] MEDS: ACETAMINOPHEN TAB 325 MG TAB PO PRN (00:24)
[2024-08-19 08:48] LABS: Chol/HDL Ratio 3.25 Ratio; LDL Cholesterol,Calculated 86.8 mg/dL (0.0-131.0); VLDL Calculation 16.26 mg/dL (5.00-40.00)
[2024-08-19] MEDS: VENLAFAXINE HCL ER 75 MG CAP PO SCH (09:49)
[2024-08-19] MEDS: lisinopriL 20 MG TAB PO SCH (09:49)
[2024-08-19] MEDS: NICOTINE 21MG/24HR PATCH TRANSDERM SCH (09:49)
[2024-08-19] MEDS: PANTOPRAZOLE 40 MG/10 ML VIAL IVP SCH (09:49)
[2024-08-19] MEDS: EZETIMIBE 10 MG TAB PO SCH (09:49)
--- NOTE | 2024-08-19 10:07 | P.HPIM ---
History of Present Illness H&P Date: 08/19/24 Chief Complaint: Status post fall, dizziness, slurred speech, confusion This is a 68-year-old female with past medical history significant for recently diagnosed bipolar last year, depression, ADD/ADHD, hypertension, hyperlipidemia, ongoing nicotine dependence and multiple other medical issues brought into the ER via EMS yesterday with complaints of fall, dizziness, confusion. Patient reports earlier in the morning she felt dizzy, difficulty walking, sustained a fall, hit concrete, crawling back as she did not feel she could walk. Denies numbness or tingling of any extremities. Denies incontinence of urine or bowel movement. Denies syncope .significant other reports she left him a voicemail which appeared to have slurred speech and she appeared incoherent. reports she has been having some short-term memory issues and sometimes increased confusion throughout her day-questioning if it is related to medications that she had been started on for her bipolar diagnosis. Denies any chest pain, palpitations or shortness of breath. Denies any chills or rigors .Denies any cough, congestion. Hypertensive on admission with blood pressure 179/70. Negative orthostatic hypotension. Afebrile, normal WBC. Hematology unremarkable. INR 1. Letter lites within normal limits. Bicarb 26, BUN 26, creatinine 0.74, glucose 102. Brain CT reported no acute intracranial process, small right posterior scalp hematoma, nonspecific white matter changes likely secondary to chronic small vessel ischemic disease. Chest x-ray reported nonacute. EKG reported sinus bradycardia, ventricular rate 59,CTA reported no evidence of dissection of the cervical internal carotid arteries or vertebral arteries or any evidence of significant stenosis at the carotid bifurcations, no evidence of high-grade stenosis or intracranial aneurysm. Review of Systems ROS Statement: Those systems with pertinent positive or pertinent negative responses have been documented in the HPI. ROS Other: All systems not noted in ROS Statement are negative. Past Medical History Past Medical History: Hyperlipidemia, Hypertension, Osteoarthritis (OA) Additional Past Medical History / Comment(s): oroantral fistula History of Any Multi-Drug Resistant Organisms: None Reported Past Surgical History: Section, Joint Replacement Additional Past Surgical History / Comment(s): Sinus surgery, dental implants, teeth extracted, bilateral cataracts, oral fistula repair 2018, bilateral hip replacements. Past Anesthesia/Blood Transfusion Reactions: Previous Problems w/ Anesthesia Additional Past Anesthesia/Blood Transfusion Reaction / Comment(s): No hx blood transfusion. "Uvula swells up sometimes after Anesthesia". Past Psychological History: ADD/ADHD, Bipolar, Depression Additional Psychological History / Comment(s): ADHD, recent diagnosis of bipolar Smoking Status: Current every day smoker Past Alcohol Use History: Rare Additional Past Alcohol Use History / Comment(s): Quit smoking August 2019, 1ppd on & off since teens. Past Drug Use History: None Reported - Past Family History Brother(s) Family Medical History: Cancer Additional Family Medical History / Comment(s): Bladder cancer. Father Family Medical History: Myocardial Infarction ([place]) Mother Family Medical History: CVA/TIA, Dementia Additional Family Medical History / Comment(s): Passed of a hemorrhagic stroke. Maternal Grandma, 2 maternal aunts hemorrhagic stroke. Medications and Allergies Home Medications Medication Instructions Recorded Confirmed Type Venlafaxine HCl ER [Effexor XR] 75 mg PO DAILY 03/26/18 08/18/24 History lisinopriL [Zestril] 20 mg PO DAILY 03/26/18 08/18/24 History Atorvastatin [Lipitor] 80 mg PO HS 05/14/22 08/18/24 History Ezetimibe [Zetia] 10 mg PO DAILY 05/14/22 08/18/24 History Methylphenidate HCl 36 mg PO DAILY 05/03/23 08/18/24 History [Methylphenidate HCl ER] Collagen Powder 1 scoop PO DAILY 08/18/24 08/18/24 History Latanoprost [Latanoprost 0.005%] 1 drop BOTH EYES HS 08/18/24 08/18/24 History Lurasidone [Latuda] 40 mg PO HS 08/18/24 08/18/24 History lamoTRIgine [LaMICtal] 300 mg PO BID 08/18/24 08/18/24 History Aspirin 81 mg PO DAILY tab 08/20/24 Rx Nicotine 21Mg/24Hr Patch [Habitrol] 1 patch TRANSDERM DAILY patch 08/20/24 Rx Allergies Allergy/AdvReac Type Severity Reaction Status Date / Time No Known Allergies Allergy Verified 08/18/24 15:23 Physical Exam Vitals: Vital Signs Temp Pulse Pulse Pulse Resp BP BP 08/19/24 08:20 08/19/24 07:00 97.7 F 63 16 08/19/24 02:00 98.0 F 69 17 163/54 08/18/24 18:39 51 L 16 08/18/24 17:45 97.6 F 51 L 16 137/59 08/18/24 17:23 54 L 16 118/55 08/18/24 14:42 97.9 F 53 L 18 08/18/24 14:22 56 L 16 115/52 08/18/24 10:49 98.0 F 56 L 20 179/70 BP BP BP Pulse Ox 08/19/24 08:20 97 08/19/24 07:00 121/56 96 08/19/24 02:00 97 08/18/24 18:39 08/18/24 17:45 95 08/18/24 17:23 98 08/18/24 14:42 130/65 127/67 134/57 97 08/18/24 14:22 96 08/18/24 10:49 97 Intake and Output 08/18/24 08/19/24 08/19/24 22:59 06:59 14:59 Other: # Voids 1 1 Weight 80.739 kg PHYSICAL EXAM: VITAL SIGNS: [Reviewed] GENERAL: Well-nourished, alert and oriented x 3, sitting up in bed, no acute distress HEENT: Right posterior scalp hematoma ,conjunctivae normal. eyes normal. MMM. NECK: Supple, no JVD. No thyroid enlargement. No LNs CARDIOVASCULAR: S1, S2 regular.No murmur RESPIRATION: Unlabored, equal air entry, minimal expiratory wheeze. ABDOMEN: Soft, nondistended, nontender . No guarding. Positive bowel sounds LEGS: No edema. no swelling NERVOUS SYSTEM: Cranial N 2-12 grossly normal. Strength and sensation grossly intact. Skin: Warm and dry, no rash Results CBC & Chem 7: 08/18/24 11:13 08/18/24 11:13 Labs: Abnormal Lab Results - Last 24 Hours (Table) 08/18/24 08/18/24 Range/Units 11: 11: APTT 20.5 L (22.0-30.0) sec Chloride 109 H (98-107) mmol/L BUN 26 H (7-17) mg/dL Glucose 102 H (74-99) mg/dL Thrombosis Risk Factor Assmnt - Choose All That Apply Any of the Below Risk Factors Present?: Yes Each Factor Represents 1 point: Obesity (BMI >25) Other Risk Factors: Yes Each Risk Factor Represents 2 Points: Age 61-74 years Other congenital or acquired thrombophilia - If yes, enter type in comment: No Thrombosis Risk Factor Assessment Total Risk Factor Score: 3 Thrombosis Risk Factor Assessment Level: Moderate Risk Assessment and Plan Assessment: Dizziness, status post fall sustaining right posterior scalp hematoma, confusion, possible TIA, possible seizures, Lamictal level pending Recent sinus congestion Recently diagnosed bipolar disorder ADD/ADHD Short-term memory deficits reported throughout the last year Depression Hypertension Hyperlipidemia Ongoing nicotine dependence Plan: Continue on current medication regimen ,monitoring and symptomatic treatment. Seizure precautions ordered. neurology consult in place, recommendations/workup in progress. Smoking cessation reinforced. The impression and plan of care has been dictated as directed. : I performed a history and examination of this patient, discussed the same with the dictator. I agree with the dictator's note ,documented as a scribe. Any additional findings or plans will be noted.
--- NOTE | 2024-08-19 13:32 | P.CNNES ---
History of Present Illness Consult date: 08/19/24 Requesting physician: Avni Li Reason for Consult: TIA, dizziness History of Present Illness: Patient is a 68-year-old right-handed female, with history of ADHD, bipolar disorder, came to the hospital by ambulance yesterday at 10:47 AM for dizziness. Patient states that yesterday morning she woke up at 8 AM, took her medications shortly after and at around 8:45 AM she started feeling dizzy. She tried to walk, but she was so dizzy, like she could fall down easily. Patient states there was no spinning, did not pass out, but she was bouncing off the simmons and countertops. She was going out to the shed, walking on the [facility] sidewalk when she was bouncing all over because of dizziness. She stepped off the sidewalk onto the grass and she fell on the grass, but her head hit the sidewalk. She crawled to her house manage to get up 4 steps to the deck and then through the back door, crawled to the kitchen to her cell phone and called 911. She had hard time dialing and kept on dialing #6. She called 911. civil draftsman came in her blood glucose was 113. Patient states that at that time she was slurring her words, her short-term memory was affected and her felt almost that she was "under the influence", although she does not drink. She drinks very rarely, and the last drink was about a week ago half a glass of wine. She may drink once every 6 months like this. Her symptoms started clearing up at 3 PM and now she feels back to normal. Patient admits to having some sinus congestion, and yesterday in the morning she did blow out a lot of mucus. She has been having some sinus drainage and runny nose for last few days. She admits to having smoker's cough. She denies any nausea vomiting with this episode, or diplopia. Denies any focal numbness tingling or focal weakness or facial droop. Patient also mentions that on Saturday, she had undergone extensive dental workup. She was given some antibiotics to take, by the time she received her antibiotics from pharmacy, the swelling has started going down and she never took it. EMS flowsheet not available in the chart. Vital signs on arrival blood pressure 179/70, pulse rate 56 temperature 98.0. Patient had orthostatics, which was negative with supine blood pressure 134/57, sitting was 130/65 and standing 127/67. Blood test shows normal CBC, PT PTT, normal normal CMP. Troponin negative. CT head showed no acute intracranial process. Small right posterior scalp hematoma. Nonspecific white matter changes, likely secondary to chronic small vessel ischemic change. I personally reviewed CT head, agree with the findings. The visualized paranasal sinuses and external auditory canals are clear. EKG showed sinus bradycardia. Chest x-ray showed no acute process. Patient has history of bipolar depression. Also has ADHD. Patient states that she was diagnosed with ADHD in her 50s. She has been on Effexor since 06/17/2001. In September 2023 she became depressed and suicidal thoughts. She was started on Lamictal at that time. She was started on 200 mg twice daily but in December it was bumped up to 300 mg twice daily. She has been on same dose of Lamictal since then, tolerating it well. Patient completely denies taking an extra dose of Lamictal by accident yesterday morning, because she keeps her pills in the pillbox. Home medications include venlafaxine, lisinopril, Zetia, Lipitor 80 mg, methylphenidate, Lamictal 300 mg twice daily, Latuda. Patient has smoked off and on, but on average combined altogether, 1 pack per day for 20 to 25 years. Patient states that her mother had hemorrhagic stroke as well as presumably her maternal grandmother also had hemorrhagic stroke. Review of Systems All pertinent positive and negative review of systems mentioned in the HPI. Otherwise completely unremarkable. Past Medical History Past Medical History: Hyperlipidemia, Hypertension, Osteoarthritis (OA) Additional Past Medical History / Comment(s): oroantral fistula History of Any Multi-Drug Resistant Organisms: None Reported Past Surgical History: Section, Joint Replacement Additional Past Surgical History / Comment(s): Sinus surgery, dental implants, teeth extracted, bilateral cataracts, oral fistula repair 2018, bilateral hip replacements. Past Anesthesia/Blood Transfusion Reactions: Previous Problems w/ Anesthesia Additional Past Anesthesia/Blood Transfusion Reaction / Comment(s): No hx blood transfusion. "Uvula swells up sometimes after Anesthesia". Past Psychological History: ADD/ADHD, Bipolar, Depression Additional Psychological History / Comment(s): ADHD, recent diagnosis of bipolar Smoking Status: Current every day smoker Past Alcohol Use History: Rare Additional Past Alcohol Use History / Comment(s): Quit smoking August 2019, 1ppd on & off since teens. Past Drug Use History: None Reported - Past Family History Brother(s) Family Medical History: Cancer Additional Family Medical History / Comment(s): Bladder cancer. Father Family Medical History: Myocardial Infarction ([place]) Mother Family Medical History: CVA/TIA, Dementia Additional Family Medical History / Comment(s): Passed of a hemorrhagic stroke. Maternal Grandma, 2 maternal aunts hemorrhagic stroke. Medications and Allergies Home Medications Medication Instructions Recorded Confirmed Type Venlafaxine HCl ER [Effexor XR] 75 mg PO DAILY 03/26/18 08/18/24 History lisinopriL [Zestril] 20 mg PO DAILY 03/26/18 08/18/24 History Atorvastatin [Lipitor] 80 mg PO HS 05/14/22 08/18/24 History Ezetimibe [Zetia] 10 mg PO DAILY 05/14/22 08/18/24 History Methylphenidate HCl 36 mg PO DAILY 05/03/23 08/18/24 History [Methylphenidate HCl ER] Collagen Powder 1 scoop PO DAILY 08/18/24 08/18/24 History Latanoprost [Latanoprost 0.005%] 1 drop BOTH EYES HS 08/18/24 08/18/24 History Lurasidone [Latuda] 40 mg PO HS 08/18/24 08/18/24 History lamoTRIgine [LaMICtal] 300 mg PO BID 08/18/24 08/18/24 History Aspirin 81 mg PO DAILY tab 08/20/24 Rx Nicotine 21Mg/24Hr Patch [Habitrol] 1 patch TRANSDERM DAILY patch 08/20/24 Rx Allergies Allergy/AdvReac Type Severity Reaction Status Date / Time No Known Allergies Allergy Verified 08/18/24 15:23 Physical Examination - Vital Signs Vital Signs: Vital Signs Temp Pulse Pulse Pulse Resp BP BP 08/19/24 08:20 08/19/24 07:00 97.7 F 63 16 08/19/24 02:00 98.0 F 69 17 163/54 08/18/24 18:39 51 L 16 08/18/24 17:45 97.6 F 51 L 16 137/59 08/18/24 17:23 54 L 16 118/55 08/18/24 14:42 97.9 F 53 L 18 08/18/24 14:22 56 L 16 115/52 BP BP BP Pulse Ox 08/19/24 08:20 97 08/19/24 07:00 121/56 96 08/19/24 02:00 97 08/18/24 18:39 08/18/24 17:45 95 08/18/24 17:23 98 08/18/24 14:42 130/65 127/67 134/57 97 08/18/24 14:22 96 Intake and Output 08/18/24 08/19/24 08/19/24 22:59 06:59 14:59 Intake Total 118 Balance 118 Intake: Oral 118 Other: # Voids 1 1 Weight 80.739 kg Patient is an elderly female, very pleasant, in no acute distress. Patient is alert awake oriented to time place and person. Speech and language functions are normal. Patient can name and repeat very well. No aphasia or dysarthria. Attention, concentration and fund of knowledge is adequate. On cranial nerve examination, pupils are equal, round and reacting to light, visual kan are full on confrontation, with no neglect on double simultaneous stimulation. Extraocular muscles are intact with mild nystagmus noted. Face is symmetric, tongue protrudes to the midline. Palatal elevation and sensation normal, hearing and shoulder shrug normal, facial sensation normal. On muscle strength testing, there is no pronator drift and the strength is normal in arms and legs distally and proximally. Deep tendon reflexes are symmetric 2+ all over and plantars downgoing. Sensory to touch is equal with no neglect on double simultaneous stimulation. Cerebellar function showed no ataxia for [id number] testing. No dy sdiadochokinesia. No ataxia for [id number] testing on either side. Tone and bulk of muscles normal. Gait was checked. Patient walks very steady, does not appear to have any imbalance. She turned around fine. She could walk tandem. Romberg negative.. On general examination, there is no carotid bruit or murmur, S1-S2 audible. Chest is clear on consultation. Abdomen is soft nontender. No organomegaly, bowel sounds present. Peripheral pulses are present. No peripheral edema. Results - Laboratory Findings CBC and BMP: 08/18/24 11:13 08/18/24 11:13 Abnormal Lab Findings: Abnormal Labs 08/18/24 08/18/24 11:13 11:13 APTT 20.5 L Chloride 109 H BUN 26 H Glucose 102 H Assessment and Plan Assessment: * Acute sudden onset episode of dizziness, imbalance, fall, slurred speech that lasted for about 5 to 6 hours and then resolved. Current NIH stroke scale is 0. Differential diagnosis is between transient peripheral vascular dysfunction from sinus congestion versus TIA. Patient takes quite high dose of Lamictal 300 mg twice daily but has been on steady dose since December 2023. Denies taking accidental overdose of Lamictal. * Recent sinus congestion and runny nose for last few days. * Hypertension * Hyperlipidemia * Tobacco use * ADHD * Bipolar disorder Plan: * Patient will undergo workup for TIA. * CTA of head and neck revealed no evidence of dissection of the cervical internal carotid arteries or vertebral arteries or any evidence of significant stenosis at the carotid bifurcations. No evidence of high-grade stenosis or intracranial aneurysm. * Lipid panel with cholesterol 149, LDL 86, HDL 45, triglycerides 81. Continue high intensity statins. * Hemoglobin A1c, Lamictal level * 2D echo with bubble study, rule out PFO * Optimize control of blood pressure. * Orthostatics negative. * Start aspirin 81 mg daily. Patient concerned because of her mother had history of hemorrhagic stroke. Risks and benefits of aspirin regimen has to be considered. * Neurologically clear, after echo completed. * Thank you for the consult.
[2024-08-19] MEDS: ASPIRIN 81 MG PO STA (17:08)
[2024-08-20] MEDS: PANTOPRAZOLE 40 MG TABLET PO SCH (06:41)
[2024-08-20 06:57] VITALS: BP 125/80; PULSE 51; RESP 20; TEMP 96
[2024-08-20] MEDS: ASPIRIN 81 MG PO SCH (09:05)
--- NOTE | 2024-08-20 09:12 | CA ---
Transthoracic Echo Report Name: Caty Troncoso Age: 68 Gender: F : 1955 Exam Date: 08/19/2024 13:41 Exam Location: [place] Echo Ht (in): 63 Wt (lb): 172 Ordering Physician: Cornelia Jerez MD Attending/Referring Phys: Lining Stamper Brianna Christensen RDCS Procedure CPT: Indications: possible TIA Cardiac Hx: Technical Quality: Fair Contrast 1: Agitated Saline Total Dose (mL): Contrast 2: Total Dose (mL): MEASUREMENTS (Male / Female) Normal Values 2D ECHO LV Diastolic Diameter PLAX 4.5 cm 4.2 - 5.9 / 3.9 - 5.3 cm LV Systolic Diameter PLAX 2.1 cm IVS Diastolic Thickness 1.1 cm 0.6 - 1.0 / 0.6 - 0.9 cm LVPW Diastolic Thickness 1.2 cm 0.6 - 1.0 / 0.6 - 0.9 cm LV Relative Wall Thickness 0.5 RV Internal Dim ED PLAX 2.5 cm LA Systolic Diameter LX 4.0 cm 3.0 - 4.0 / 2.7 - 3.8 cm LV Diastolic Volume MOD BP 57.7 cm??? 67 - 155 / 56 - 104 cm??? LV Systolic Volume MOD BP 22.4 cm??? 22 - 58 / 19 - 49 cm??? LV Ejection Fraction MOD BP 61.1 % >= 55 % LV Cardiac Index MOD BP 1213.6 cm???/min???m??? LV Diastolic Volume MOD 4C 68.2 cm??? LV Systolic Volume MOD 4C 26.7 cm??? LV Ejection Fraction MOD 4C 60.8 % LV Cardiac Index MOD 4C 1426.8 cm???/min???m??? LV Diastolic Length 4C 6.5 cm LV Systolic Length 4C 5.8 cm LV Diastolic Volume MOD 2C 46.5 cm??? LV Systolic Volume MOD 2C 16.4 cm??? LV Ejection Fraction MOD 2C 64.8 % LV Cardiac Index MOD 2C 1035.7 cm???/min???m??? LV Diastolic Length 2C 6.2 cm LV Systolic Length 2C 4.9 cm LA Volume 88.6 cm??? 18 - 58 / 22 - 52 cm??? LA Volume Index 46.9 cm???/m??? 16 - 28 cm???/m??? M-MODE Aortic Root Diameter MM 3.0 cm LA Systolic Diameter MM 3.5 cm LA Ao Ratio MM 1.2 AV Cusp Separation MM 1.7 cm DOPPLER MV Area PHT 2.3 cm??? Mitral E Point Velocity 65.3 cm/s Mitral A Point Velocity 70.9 cm/s Mitral E to A Ratio 0.9 MV Deceleration Time 334.4 ms TR Peak Velocity 241.2 cm/s TR Peak Gradient 23.3 mmHg Right Ventricular Systolic Press 27.3 mmHg FINDINGS Left Ventricle Left ventricular ejection fraction is estimated at 60-65%. Mildly increased septal wall thickness. Mildly increased posterior wall thickness. Left ventricular cavity size normal. Normal left ventricular systolic function with no obvious regional wall motion abnormalities. Right Ventricle Mild right ventricular dilatation. Right ventricular systolic pressure within normal limits. Right Atrium Moderate right atrial dilatation. Negative agitated saline bubble study for right to left shunt. Left Atrium Mildly increased left atrial diameter. Severely increased left atrial volume. Mildly increased left atrial area. Mitral Valve Structurally normal mitral valve. Mild mitral regurgitation. No mitral stenosis. Aortic Valve Trileaflet aortic valve. No aortic valve stenosis or regurgitation. Tricuspid Valve Structurally normal tricuspid valve. Pulmonic Valve Structurally normal pulmonic valve. No pulmonic stenosis. Trace pulmonic regurgitation. Pericardium No pericardial or pleural effusion. Aorta Normal size aortic root and proximal ascending aorta. CONCLUSIONS Normal biventricular systolic function Mild left ventricular hypertrophy Mildly thickened aortic valve with no stenosis or regurgitation Normal pulmonary artery systolic pressure Mildly enlarged RV No evidence of pericardial effusion Previewed by: Dr. Alejo Klein MD (Electronically Signed) Final Date: 20 August 2024 09:11
--- NOTE | 2024-08-20 09:19 | P.PN ---
Subjective Progress Note Date: 08/20/24 Patient was seen for a follow-up. Patient is sitting in the recliner, very comfortable. Has no complaints. All symptoms have resolved. Objective - Vital Signs Vital signs: Vital Signs Temp 96 F L 08/20/24 06:56 Pulse 51 L 08/20/24 06:56 Resp 20 08/20/24 06:56 BP 125/80 08/20/24 06:56 Pulse Ox 98 08/20/24 06:56 FiO2 Intake & Output 08/19/24 08/20/24 08/20/24 18:59 06:59 18:59 Intake Total 354 920 Balance 354 920 Intake: Oral 354 920 Other: Voiding Method Toilet # Voids 3 2 # Bowel Movements 1 - Exam Examination normal except for mild nystagmus looking to the right. Gait is normal. - Labs CBC & Chem 7: 08/18/24 11:13 08/18/24 11:13 Assessment and Plan Assessment: * Acute sudden onset episode of dizziness, imbalance, fall, slurred speech that lasted for about 5 to 6 hours and then resolved. Current NIH stroke scale is 0. Differential diagnosis is between transient peripheral vascular dysfunction from sinus congestion versus TIA. Patient takes quite high dose of Lamictal 300 mg twice daily but has been on steady dose since December 2023. Denies taking accidental overdose of Lamictal. * Recent sinus congestion and runny nose for last few days. * Hypertension * Hyperlipidemia * Tobacco use * ADHD * Bipolar disorder Plan: * Patient had transient episode of dizziness, imbalance, slurred speech and fall. Differential is between transient peripheral vestibular dysfunction versus TIA. However presence of slurred speech points more towards a possible TIA. * CTA of head and neck revealed no evidence of dissection of the cervical internal carotid arteries or vertebral arteries or any evidence of significant stenosis at the carotid bifurcations. No evidence of high-grade stenosis or intracranial aneurysm. * Lipid panel with cholesterol 149, LDL 86, HDL 45, triglycerides 81. Continue high intensity statins. * Hemoglobin A1c 5.7, * Lamictal level 10.3 (2-15). Level therapeutic. * 2D echo revealed normal biventricular systolic function with EF 60 to 65%. Mildly increased left septal wall thickness. Mildly increased posterior wall thickness. Normal left ventricular systolic function with no obvious regional wall motion abnormalities. Negative agitated saline bubble study for right- to-left shunt. Mildly increased left atrial diameter. * Optimize control of blood pressure. * Orthostatics negative. * Start aspirin 81 mg daily. Patient concerned because of her mother had history of hemorrhagic stroke. Risks and benefits of aspirin regimen has to be considered. * Neurologically clear for discharge.
--- NOTE | 2024-08-21 12:38 | P.DS ---
Providers Date of admission: 08/18/24 14:36 Expected date of discharge: 08/20/24 Attending physician: Brian Joseph MD Consults: 08/18/24 14:39 Consult Physician Routine Consulting Provider: Cornelia Jerez Consult Reason/Comments: TIA/dizziness Do you want consulting provider notified?: Yes Primary care physician: Brian Joseph MD Hospital Course: Final Diagnoses: Dizziness, status post fall sustaining right posterior scalp hematoma, confusion, possible TIA. Per neurology differential diagnosis between transient peripheral vascular dysfunction secondary to sinus congestion versus TIA. Recent sinus congestion Recently diagnosed bipolar disorder ADD/ADHD Short-term memory deficits reported throughout the last year Depression Hypertension Hyperlipidemia Hospital course:This is a 68-year-old female with past medical history significant for recently diagnosed bipolar last year, depression, ADD/ADHD, hypertension, hyperlipidemia, ongoing nicotine dependence and multiple other medical issues brought into the ER via EMS yesterday with complaints of fall, dizziness, confusion. Patient reports earlier in the morning she felt dizzy, difficulty walking, sustained a fall, hit concrete, crawling back as she did not feel she could walk. Denies numbness or tingling of any extremities. Denies incontinence of urine or bowel movement. Denies syncope .significant other reports she left him a voicemail which appeared to have slurred speech and she appeared incoherent. reports she has been having some short-term memory issues and sometimes increased confusion throughout her day-questioning if it is related to medications that she had been started on for her bipolar diagnosis. Denies any chest pain, palpitations or shortness of breath. Denies any chills or rigors .Denies any cough, congestion. Hypertensive on admission with blood pressure 179/70. Negative orthostatic hypotension. Afebrile, normal WBC. Hematology unremarkable. INR 1. Letter lites within normal limits. Bicarb 26, BUN 26, creatinine 0.74, glucose 102. Brain CT reported no acute intracranial process, small right posterior scalp hematoma, nonspecific white matter changes likely secondary to chronic small vessel ischemic disease. Chest x-ray reported nonacute. EKG reported sinus bradycardia, ventricular rate 59,CTA reported no evidence of dissection of the cervical internal carotid arteries or vertebral arteries or any evidence of significant stenosis at the carotid bifurcations, no evidence of high-grade stenosis or intracranial aneurysm. Seizure precautions ordered. neurology consult in place, recommendations/workup in progress. Smoking cessation reinforced. Evaluated by neurology, workup completed. Lamictal level therapeutic, 10.3.Echo reported negative bubble study for vyorb-sk-hvsw shunt ,normal biventricular systolic function, mild left ventricular hypertrophy, mildly thickened aortic valve with no stenosis or regurgitation, normal pulmonary pressure, mildly enlarged RV, no evidence of pericardial effusion. Significant clinical improvement. Currently asymptomatic, denies any new neurosymptoms. denies any chest pain, palpitations or shortness of breath. Denies any lightheadedness, dizziness or focal deficits. Speech fluent and appropriate. Ambulating, tolerating exertion well. Cleared by neurology for discharge, recommending aspirin 81 mg daily. Patient will be discharged home today in a stable condition with guarded prognosis. The impression and plan of care has been dictated as directed. : I performed a history and examination of this patient, discussed the same with the dictator. I agree with the dictator's note ,documented as a scribe. Any additional findings or plans will be noted. Patient Condition at Discharge: Stable Plan - Discharge Summary Discharge Rx Participant: No New Discharge Prescriptions: New Aspirin 81 mg PO DAILY tab Nicotine 21Mg/24Hr Patch [Habitrol] 1 patch TRANSDERM DAILY patch Continue Venlafaxine HCl ER [Effexor XR] 75 mg PO DAILY lisinopriL [Zestril] 20 mg PO DAILY Ezetimibe [Zetia] 10 mg PO DAILY Collagen Powder 1 scoop PO DAILY lamoTRIgine [LaMICtal] 300 mg PO BID Latanoprost [Latanoprost 0.005%] 1 drop BOTH EYES HS Lurasidone [Latuda] 40 mg PO HS Atorvastatin [Lipitor] 80 mg PO HS Methylphenidate HCl [Methylphenidate HCl ER] 36 mg PO DAILY Discharge Medication List Venlafaxine HCl ER [Effexor XR] 75 mg PO DAILY 03/26/18 [History] lisinopriL [Zestril] 20 mg PO DAILY 03/26/18 [History] Atorvastatin [Lipitor] 80 mg PO HS 05/14/22 [History] Ezetimibe [Zetia] 10 mg PO DAILY 05/14/22 [History] Methylphenidate HCl [Methylphenidate HCl ER] 36 mg PO DAILY 05/03/23 [History] Collagen Powder 1 scoop PO DAILY 08/18/24 [History] Latanoprost [Latanoprost 0.005%] 1 drop BOTH EYES HS 08/18/24 [History] Lurasidone [Latuda] 40 mg PO HS 08/18/24 [History] lamoTRIgine [LaMICtal] 300 mg PO BID 08/18/24 [History] Aspirin 81 mg PO DAILY tab 08/20/24 [Rx] Nicotine 21Mg/24Hr Patch [Habitrol] 1 patch TRANSDERM DAILY patch 08/20/24 [Rx] Follow up Appointment(s)/Referral(s): Brian Joseph MD [Primary Care Provider] - 1 Week Patient Instructions/Handouts: Transient Ischemic Attack (DC), Vertigo (DC) Discharge Disposition: HOME SELF-CARE
== END 2024-08-20 11:43 | disposition home or self-care (01) ==
LOC: EC 10:47 → 6NMEDSUR 14:36
PROVIDERS: ADMIT Family Medicine; ATTEND Family Medicine
DX: R42 Dizziness and giddiness (principal); S00.03XA Contusion of scalp, initial encounter; W01.198A Fall on same level from slipping, tripping and stumbling with subsequent striking against other object, initial encounter; Y92.009 Unspecified place in unspecified non-institutional (private) residence as the place of occurrence of the external cause; R47.81 Slurred speech; R41.3 Other amnesia; R26.2 Difficulty in walking, not elsewhere classified; R00.1 Bradycardia, unspecified; M54.2 Cervicalgia; J41.0 Simple chronic bronchitis; E78.5 Hyperlipidemia, unspecified; I10 Essential (primary) hypertension; F31.9 Bipolar disorder, unspecified; F90.9 Attention-deficit hyperactivity disorder, unspecified type; F17.200 Nicotine dependence, unspecified, uncomplicated; Z79.82 Long term (current) use of aspirin; Z79.899 Other long term (current) drug therapy
CPT/HCPCS: 96360; 99285; 36415; 94760; 93005; 93306; 80061; 80053; 80175; 83735; 84484; 85025; 85610; 85730; 83036; 71046; 70496; 70450; 70498; G0378 ×3; S4990 ×2; Q9967

== ENCOUNTER → 2024-11-30 | Outpatient (CLI) | payer OTHER ==
--- NOTE | 2024-12-01 21:11 | P.PCN ---
Date of Procedure: 11/30/24 Operative Findings: Home sleep study testing Date of service is 11/30/2024 Pertinent history This is a 68-year-old female patient who was seen in consult at the sleep center on 05/26/2024. The patient reported snoring. The patient reported sleeping in a separate bedroom as her sleep is quite restless and she is unable to share the same bedroom with her . She has gained weight over the years and currently she is on Wegovy. Her body mass index is at 31.9 and the patient is already lost around 25 pounds while taking Wegovy. She drinks around 2 to 3 cups of coffee in the morning. She is a smoker. Comorbid conditions include bipolar disorder/depression, ADHD, hypertension hyperlipidemia Pertinent physical findings Body mass index is 31.9, weight is 183, [place] score is at 10 Technical description The [employer] system was used to complete his home sleep study. There is a type III home sleep study evaluation. The total recording duration was 6 hours. The study started at 10:37 PM and ended at 4:38 AM. There was a total of 5 hours and 38 minutes of flow monitoring in 5 hours and 49 minutes of oxygen saturation monitoring Results The respiratory analysis showed a total of 16 obstructive apneas and 15 obstructive hypopneas. The resulting AHI was 5.1 Oxygenation analysis The baseline pulse ox while awake was 94%, average pulse ox during sleep was 93%, lowest pulse ox was 77% and the patient spent only 15 minutes of the sleep time below pulse ox of 89% Cardiac summary Average heart rate was 59 with a minimum heart rate of 48 and a maximum of 84 Assessment Mild DIONNE with an AHI of 5.1 Very limited oxygen saturations overnight with a minimum pulse ox of 77% Loud snoring Obesity with interval weight loss. Current body mass index is 31.9 and the patient is on Wegovy Hypertension Bipolar disorder Depression Plan This is a case of very mild obstructive sleep apnea. I do not see the immediate need for CPAP therapy. The patient is already on Wegovy and she is successfully losing weight. Will encourage further weight loss. Implement good sleep hygiene measures. Maintain regular sleep schedule. Sleep on the side with the head of the bed elevated. Follow-up in the office in 6 to 8 months time.
== END ==
LOC: 3 N SLEEP 11:01
PROVIDERS: ATTEND Internal Medicine Critical Care Medicine
DX: G47.33 Obstructive sleep apnea (adult) (pediatric) (principal); E66.9 Obesity, unspecified; I10 Essential (primary) hypertension; F31.9 Bipolar disorder, unspecified; Z68.31 Body mass index [BMI] 31.0-31.9, adult; Z87.891 Personal history of nicotine dependence

== ENCOUNTER → 2025-02-01 | Outpatient (CLI) | payer OTHER ==
--- NOTE | 2025-02-02 07:04 | MM ---
Reason for Exam: Screening (asymptomatic). Last screening mammogram was performed 12 month(s) ago. Patient History: Menarche at age 15. First Full-Term at age 37. Late child-bearing (after 32). Postmenopausal. Progesterone, starting at age 63 for 1 year. 1992, Benign Cyst Aspiration on the right side. Risk Values: Kary 5 year model risk: 2.3%. NCI Lifetime model risk: 7.9%. Prior Study Comparison: 12/19/2021 Bilateral Diagnostic Mammogram, [facility]. 12/21/2022 Bilateral MG screening mammo w CAD, [facility]. 01/09/2024 Bilateral MG screening mammo w CAD, [facility]. Tissue Density: The breasts are heterogeneously dense, which may obscure small masses. Findings: Analyzed By CAD. There are a few grouped benign-appearing round calcifications in the left breast redemonstrated. There is no suspicious new group of microcalcifications or new suspicious mass in either breast. Overall Assessment: Benign, BI-RAD 2 Management: Screening Mammogram of both breasts in 1 year. . Patient should continue monthly self-breast exams. A clinical breast exam by your physician is recommended on an annual basis. This exam should not preclude additional follow-up of suspicious palpable abnormalities. Note on Kary scores and lifetime risk: 1. A Kary score greater than 3% is considered moderate risk. If this is the case, consider specialist referral to assess eligibility for a risk reducing agent. 2. If overall lifetime risk for the development of breast cancer is 20% or higher, the patient may qualify for future screening with alternating mammogram and breast MRI. [facility], , 02/02/2025 7:01 AM. Electronically signed and approved by: Byron Sinclair M.D.
== END | disposition home or self-care (01) ==
LOC: RADMAMWWP 16:02
PROVIDERS: ATTEND Family Medicine
DX: Z12.31 Encounter for screening mammogram for malignant neoplasm of breast (principal); R92.333 Mammographic heterogeneous density, bilateral breasts; Z78.0 Asymptomatic menopausal state
CPT/HCPCS: 77067